=== PATIENT | male | born 1935 | race Caucasian/White ===

== ENCOUNTER 2017-10-06 14:55 | Inpatient (IN) | payer MEDICARE, OTHER ==
[2017-10-06] MEDS ORDERED: PROVENTIL 2.5 MG/3 ML NEB IH ONE ×2 (15:06→15:11)
[2017-10-06] MEDS ORDERED: ROCEPHIN 1 Gm-D5w 50 ml Bag** 1 G/50 ML IVPB IV STA (15:11)
[2017-10-06] MEDS ORDERED: Zithromax 500 MG/ 250 ML NaCl Premix 500 MG/250 ML IVPB IV STA (15:11)
[2017-10-06] MEDS ORDERED: solu-MEDROL 125 MG IV ONE (15:11)
[2017-10-06] MEDS ORDERED: Sodium Chloride 0.9% 1000 ML 1,000 ML IV SCH (15:15)
[2017-10-06] MEDS ORDERED: Zithromax 500 MG/ 250 ML NaCl Premix 500 MG/250 ML IVPB IV ONE (15:17)
[2017-10-06] MEDS ORDERED: solu-MEDROL 125 MG ONE (15:17)
[2017-10-06] MEDS ORDERED: Sodium Chloride 0.9% 1000 ML 1,000 ML ONE (15:17)
[2017-10-06 15:20] LABS: A-aADO2 184; ABG HEMOGLOBIN 14.7; ABG POTASSIUM 4.4 (3.5-5.1); ARTERIAL BLD GAS O2 SATURATION 96.1 % (95-100); ARTERIAL BLOOD GAS BASE EXCESS -4.8 (-2.0-2.0); ARTERIAL BLOOD GAS FIO2 40 %; ARTERIAL BLOOD GAS PCO2 27 mmHg (35-45); ARTERIAL BLOOD GAS PO2 67 mmHg (75-100); ARTERIAL BLOOD GAS pH 7.43 (7.35-7.45); CARBOXYHEMOGLOBIN 2.2 % THgb (0.0-6.9); HCO3- 17.9 (22-28); Lactic Acid 2.7 (0.4-2.0); paO2 pAO1 0.27
[2017-10-06 15:22] LABS: ABG SITE LEFT RADIAL; ALLEN TEST OK? YES
[2017-10-06] MEDS ORDERED: LEVOFLOXACIN 750MG/150ML D5W 750 MG/150 ML BAG IV STA (15:34)
[2017-10-06 15:36] LABS: Hematocrit 46.9 % (42-50); Hemoglobin 14.7 gm/dl (12.5-18.0); Mean Cell Volume 95.1 fl (78-100); Mean Corpuscular Hemoglobin 29.8 pg (26-32); Mean Corpuscular Hgb Concent. 31.3 g/dl (32-36); Mean Platelet Volume 9.9 fl (6-9.5); Platelet Count 342 K/mm3 (150-450); Red Blood Count 4.93 M/mm3 (4.1-5.6); Red Cell Distribution Width 15.3 % (11.5-14.0)
[2017-10-06 15:39] LABS: INR 1.1 (0.8-3.0)
[2017-10-06 15:42] LABS: PTT 29.7 SECONDS (24.1-36.1)
[2017-10-06] MEDS ORDERED: LEVOFLOXACIN 750MG/150ML D5W 750 MG/150 ML BAG IV ONE (15:46)
[2017-10-06 15:48] LABS: ANION GAP 17.3 MEQ/L (5-15); BILIRUBIN,TOTAL 0.4 mg/dL (0.2-1.0); Carbon Dioxide 21.3 mEq/L (21-32); Creatinine 1 2.43 mg/dl (0.55-1.30); MAGNESIUM 2.2 mg/dL (1.8-2.4); Potassium 4.4 mEq/L (3.5-5.1); Total Protein 6.9 gm/dL (6.4-8.2)
--- NOTE | 2017-10-06 15:52 | XRAY ---
Indication: Cough and dyspnea. Comparison: September 28, 2016. Portable chest again demonstrates COPD with scattered bilateral fibrosis/scarring. New left midlung consolidating air space disease without large effusion. Heart is not enlarged. Bony thorax intact. Impression: New inferior left upper lobe consolidating airspace disease. Stable COPD and fibrosis/scarring.
[2017-10-06 16:18] LABS: Eosinophil 2 % (0.00-3.0); Lymphocytes 8 % (24-44); Monocyte 9 % (0.0-12.0); Myelocyte 1 %; Neutrophils 80 % (36.-66.); Total Cells Counted 100
[2017-10-06 16:19] LABS: ABSOLUTE NEUTROPHILS 9.69 (1.4-6.9); Burr Cells 1+; Platelet Estimate NORMAL (NORMAL)
--- NOTE | 2017-10-06 16:26 | ERPHSYRPT ---
- History of Present Illness Time Seen by Provider: 10/06/17 15:04 Source: patient, family (daughter) Patient Subjective Stated Complaint: to er for low blood pressure. pt family states pt has been recently sick with shingles, and has been loosing weight recently Triage Nursing Assessment: to er c/o low blood pressure pt states worse in last day pt arrives sob Physician History: CC: cough Hx: 82 y/o patient of BARRY and DR Marroquin. He has hx of COPD and prior stroke with anxiety. He was treated recently with cipro and prednisone for bronchitis. The meds are done. He is on 5 puffers. He has fever, increased cough with sputum , shortness of breath. BP lower today than normal. No pain. Pt is not on home oxygen. ALL: PCN- angioedema Allergies/Adverse Reactions: penicillin G Allergy (Mild, Verified 09/28/16 08:53) HIVES/PASSED OUT Home Medications: Tamsulosin HCl 0.4 mg [Flomax 0.4 MG] 0.4 mg PO EVENING MEAL 07/25/14 [ History] Atorvastatin Calcium 40 mg PO DAILY 09/28/16 [History] Metoprolol Tartrate 50 mg [Lopressor 50 MG] 25 mg PO BID 09/28/16 [History ] Albuterol Sulfate [Proair Respiclick] 90 mcg IH QID PRN 10/06/17 [History] Amlodipine Besylate 5 mg [Norvasc 5 mg] 5 mg PO DAILY 10/06/17 [History] Budesonide/Formoterol Fumarate [Symbicort 160-4.5 Mcg Inhaler] 10.2 gm IH DAILY 10/06/17 [History] Buspirone HCl [Buspar] 10 mg PO BID 10/06/17 [History] Clopidogrel Bisulfate 75 mg [PLAVIX 75 MG Tablet] 75 mg PO DAILY 10/06/17 [History] Hx Tetanus, Diphtheria Vaccination/Date Given: No Hx Influenza Vaccination/Date Given: No Hx Pneumococcal Vaccination/Date Given: Yes - Review of Systems Constitutional: Fever, Chills, Malaise Eyes: No Symptoms Ears, Nose, & Throat: No Symptoms Respiratory: Cough, Dyspnea Cardiac: No Chest Pain Abdominal/Gastrointestinal: No Abdominal Pain, No Nausea, No Vomiting Skin: No Rash Neurological: No Headache All Other Systems: Reviewed and Negative - Past Medical History Pertinent Past Medical History: Yes Neurological History: No Pertinent History ENT History: No Pertinent History Cardiac History: High Cholesterol, Hypertension Respiratory History: COPD Endocrine Medical History: No Pertinent History Musculoskeletal History: No Pertinent History GI Medical History: Ulcer History: No Pertinent History Psycho-Social History: No Pertinent History Male Reproductive Disorders: Prostate Problems Other Medical History: Melanoma - Past Surgical History Past Surgical History: Yes Neuro Surgical History: No Pertinent History Cardiac: No Pertinent History Respiratory: No Pertinent History Gastrointestinal: No Pertinent History Genitourinary: No Pertinent History Musculoskeletal: No Pertinent History Male Surgical History: No Pertinent History Other Surgical History: LUMPH NODE REMOVED. Melanoma Surgery - Social History Smoking Status: Former smoker How long have you smoked: YRS Exposure to second hand smoke: No Drug Use: none Patient Lives Alone: No - Nursing Vital Signs Nursing Vital Signs: Initial Vital Signs Temperature 98.0 F 10/06/17 14:59 Pulse Rate 92 H 10/06/17 14:59 Respiratory Rate 26 H 10/06/17 14:59 Blood Pressure 163/86 10/06/17 14:59 O2 Sat by Pulse Oximetry 75 L 10/06/17 14:59 Pain Scale Pain Intensity 0 - Physical Exam General Appearance: alert, cachetic, other (anxious) Eye Exam: PERRL/EOMI Ears, Nose, Throat Exam: moist mucous membranes Neck Exam: normal inspection, non-tender, supple Respiratory Exam: respiratory distress (mild), diminished breath sounds Cardiovascular Exam: regular rate/rhythm Gastrointestinal/Abdomen Exam: soft, No tenderness, No distention Neurologic Exam: alert, oriented x 3, cooperative, other (somewhat anxious but calms readily), No motor deficits Skin Exam: warm, dry, No rash SpO2 Interpretation: hypoxic, ABG ordered, O2 applied SpO2: 71 Oxygen Delivery: Room Air - Course Nursing assessment & vital signs reviewed: Yes EKG Interpreted by Me: RATE (98), Sinus Rhythm, NORMAL AXIS, NORMAL INTERVALS ( QTc 404), NORMAL ST-T - Radiology Exams cxr X-ray Interpretation: Teleradiologist Report (New inferior left upper lobe conolidating airspace disease. STable COPD/fibrosis/scarring.) Ordered Tests: Active Orders 24 hr Category Date Time Status Manager Decision Support STAT Care 10/06/17 15:12 Active Clean Catch Urine Specimen STAT Care 10/06/17 15:11 Active EKG-ER Only STAT Care 10/06/17 15:11 Active IV Insertion STAT Care 10/06/17 15:11 Active Oxygen-ED Only NASAL CANNULA 4 lpm Care 10/06/17 15:11 Active Pulse Oximetry (ED) STAT Care 10/06/17 15:11 Active Rectal Temperature STAT Care 10/06/17 15:11 Active CHEST 1 VIEW (PORTABLE) Stat Exams 10/06/17 15:11 Completed ARTERIAL BLOOD GASES Stat Lab 10/06/17 15:10 Completed BLOOD CULTURE Stat Lab 10/06/17 15:11 Ordered CBC W DIFF Stat Lab 10/06/17 15:19 Completed CMP Stat Lab 10/06/17 15:19 Completed CULTURE,SPUTUM Stat Lab 10/06/17 15:11 Uncollected Lactic Acid Stat Lab 10/06/17 15:10 Completed MAGNESIUM Stat Lab 10/06/17 15:19 Completed Manual Differential NC Stat Lab 10/06/17 15:19 Completed PROTIME WITH INR Stat Lab 10/06/17 15:19 Completed PTT Stat Lab 10/06/17 15:19 Completed UA W/RFX UR CULTURE Stat Lab 10/06/17 15:11 Ordered Respiratory Nebulizer STAT RT 10/06/17 15:12 Completed Medication Summary Generic Name Dose Route Start Last Admin Trade Name Freq PRN Reason Stop Dose Admin Sodium Chloride 1,000 mls @ 50 mls/hr 10/06/17 15:15 10/06/17 15:31 Sodium Chloride 0.9% 1000 Ml IV 11/05/17 15:14 50 mls/hr .Q20H MONIKA Administration Levofloxacin/Dextrose 750 mg in 150 mls @ 100 mls/hr 10/06/17 15:34 10/06/17 15:49 Levofloxacin 750mg/150ml D5w IV 10/06/17 17:03 100 mls/hr STAT STA Administration Discontinued Medications Generic Name Dose Route Start Last Admin Trade Name Freq PRN Reason Stop Dose Admin Albuterol Sulfate Confirm 10/06/17 15:06 Proventil 2.5 Mg/3 Ml Neb Administered 10/06/17 15:07 Dose 2.5 mg IH .STK-MED ONE Albuterol Sulfate 2.5 mg 10/06/17 15:11 10/06/17 15:08 Proventil 2.5 Mg/3 Ml Neb IH 10/06/17 15:12 2.5 mg STAT ONE Administration Ceftriaxone Sodium/Dextrose 1 g in 50 mls @ 100 mls/hr 10/06/17 15:11 Rocephin 1 Gm-D5w 50 Ml Bag IV 10/06/17 15:40 STAT STA Azithromycin 500 mg in 250 mls @ 250 mls/hr 10/06/17 15:11 Zithromax 500 Mg/ 250 Ml Nacl Premix IV 10/06/17 16:10 STAT STA Azithromycin Confirm 10/06/17 15:17 Zithromax 500 Mg/ 250 Ml Nacl Premix Administered 10/06/17 15:18 Dose 500 mg in 250 mls @ ud IV .STK-MED ONE Levofloxacin/Dextrose Confirm 10/06/17 15:46 Levofloxacin 750mg/150ml D5w Administered 10/06/17 15:47 Dose 750 mg in 150 mls @ ud IV .STK-MED ONE Methylprednisolone Sodium Succinate 125 mg 10/06/17 15:11 10/06/17 15:32 Solu-Medrol 125 Mg IV 10/06/17 15:12 125 mg STAT ONE Administration Methylprednisolone Sodium Succinate Confirm 10/06/17 15:17 Solu-Medrol 125 Mg Administered 10/06/17 15:18 Dose 125 mg .ROUTE .STK-MED ONE Lab/Rad Data: Laboratory Result Diagrams 10/06/17 15:19 10/06/17 15:19 Laboratory Results 10/06/17 10/06/17 10/06/17 Range/Units 15:19 15:19 15:19 WBC 12.0 H (4.0-10.5) K/mm3 RBC 4.93 (4.1-5.6) M/mm3 Hgb 14.7 (12.5-18.0) gm/dl Hct 46.9 (42-50) % MCV 95.1 (78-100) fl MCH 29.8 (26-32) pg MCHC 31.3 L (32-36) g/dl RDW 15.3 H (11.5-14.0) % Plt Count 342 (150-450) K/mm3 MPV 9.9 H (6-9.5) fl Absolute Neutrophils 9.69 (1.4-6.9) Segmented Neutrophils 80 H (36.-66.) % Lymphocytes (Manual) 8 L (24-44) % Monocytes (Manual) 9 (0.0-12.0) % Eosinophils (Manual) 2 (0.00-3.0) % Myelocytes 1 % Differential Comment ABNORMAL Platelet Estimate NORMAL (NORMAL) Rayle Cells 1+ INR 1.10 (0.8-3.0) APTT 29.7 (24.1-36.1) SECONDS Puncture Site pCO2 (35-45) mmHg pO2 (75-100) mmHg Base Excess (-2.0-2.0) O2 Saturation (94-100) g/dF ABG pH (7.35-7.45) ABG HCO3 (22-28) ABG O2 Sat (Measured) (95-100) % Nguyễn Test A-a Gradient a/A Ratio Hemoglobin Carboxyhemoglobin (0.0-6.9) % THgb Methemoglobin (1.4-1.5) % Potassium 4.4 (3.5-5.1) Temperature C POC O2 Flow Rate % Sodium 141 (136-145) mEq/L Chloride 107 (98-107) mEq/L Carbon Dioxide 21.3 (21-32) mEq/L Anion Gap 17.3 H (5-15) MEQ/L BUN 46 H (9-20) mg/dL Creatinine 2.43 H (0.55-1.30) mg/dl Estimated GFR 27 ML/MIN Glucose 109 (70-110) MG/DL Lactic Acid (0.4-2.0) Calcium 9.0 (8.5-10.1) mg/dL Magnesium 2.2 (1.8-2.4) mg/dL Total Bilirubin 0.40 (0.2-1.0) mg/dL AST 30 (15-37) U/L ALT 32 (12-78) U/L Alkaline Phosphatase 86 (46-116) U/L Serum Total Protein 6.9 (6.4-8.2) gm/dL Albumin 2.0 L (3.4-5.0) g/dL Influenza Type A Ag (NEGATIVE) Influenza Type B Ag (NEGATIVE) RSV (PCR) (Negative) 10/06/17 10/06/17 Range/Units 15:19 15:10 WBC (4.0-10.5) K/mm3 RBC (4.1-5.6) M/mm3 Hgb (12.5-18.0) gm/dl Hct (42-50) % MCV (78-100) fl MCH (26-32) pg MCHC (32-36) g/dl RDW (11.5-14.0) % Plt Count (150-450) K/mm3 MPV (6-9.5) fl Absolute Neutrophils (1.4-6.9) Segmented Neutrophils (36.-66.) % Lymphocytes (Manual) (24-44) % Monocytes (Manual) (0.0-12.0) % Eosinophils (Manual) (0.00-3.0) % Myelocytes % Differential Comment Platelet Estimate (NORMAL) Rayle Cells INR (0.8-3.0) APTT (24.1-36.1) SECONDS Puncture Site LEFT RADIAL pCO2 27 L (35-45) mmHg pO2 67 L (75-100) mmHg Base Excess -4.8 L (-2.0-2.0) O2 Saturation 93.0 L (94-100) g/dF ABG pH 7.43 (7.35-7.45) ABG HCO3 17.9 L (22-28) ABG O2 Sat (Measured) 96.1 (95-100) % Nguyễn Test YES A-a Gradient 184 a/A Ratio 0.27 Hemoglobin 14.7 Carboxyhemoglobin 2.2 (0.0-6.9) % THgb Methemoglobin 1.0 L (1.4-1.5) % Potassium 4.4 (3.5-5.1) Temperature 37.0 C POC O2 Flow Rate 40 % Sodium (136-145) mEq/L Chloride (98-107) mEq/L Carbon Dioxide (21-32) mEq/L Anion Gap (5-15) MEQ/L BUN (9-20) mg/dL Creatinine (0.55-1.30) mg/dl Estimated GFR ML/MIN Glucose (70-110) MG/DL Lactic Acid 2.7 H (0.4-2.0) Calcium (8.5-10.1) mg/dL Magnesium (1.8-2.4) mg/dL Total Bilirubin (0.2-1.0) mg/dL AST (15-37) U/L ALT (12-78) U/L Alkaline Phosphatase (46-116) U/L Serum Total Protein (6.4-8.2) gm/dL Albumin (3.4-5.0) g/dL Influenza Type A Ag NEGATIVE (NEGATIVE) Influenza Type B Ag NEGATIVE (NEGATIVE) RSV (PCR) NEGATIVE (Negative) - Progress Progress Note: 10/06/17 16:27 Pt improved with oxygen, nebs. Steroids given. Cultures sent. Temp [facility]. [facility] and pt has MCR A/B. 10/06/17 16:[address] Marroquin who agreed for IP admission. Plan explained to pt and daughter. Discussed with .: Cara Will see patient in: hospital (full admit) Counseled pt/family regarding: lab results, diagnosis, need for follow-up, rad results - Departure Time of Disposition: 16:53 Departure Disposition: In-patient Admission Clinical Impression: Renal insufficiency, Left upper lobe pneumonia, COPD exacerbation, Hypoxemia Condition: Fair Critical Care Time: Yes Critical Care Time(excluding separately billable procedures): 30-74 minutes
[2017-10-06 16:28] LABS: INFLUENZA A NEGATIVE (NEGATIVE); INFLUENZA B NEGATIVE (NEGATIVE); RESPIRATORY SYNCTIAL VIRUS NEGATIVE (Negative)
[2017-10-06 17:34] LABS: Lactic Acid 2.5 (0.4-2.0)
[2017-10-06] MEDS ORDERED: TYLENOL 325 MG PO PRN (18:14)
[2017-10-06] MEDS ORDERED: BENADRYL 25 MG CAPSULE PO PRN (20:24)
[2017-10-06] MEDS ORDERED: Lopressor 25MG Tab PO ONE (20:26)
[2017-10-06] MEDS ORDERED: BUSPAR 5 MG PO ONE (22:00)
[2017-10-06] MEDS ORDERED: Flomax 0.4 MG PO ONE (22:00)
[2017-10-06] MEDS: Pepcid 20 MG VIAL IV SCH (22:48)
[2017-10-07 01:39] LABS: Appearance CLEAR (CLEAR); Bacteria RARE /HPF (NEGATIVE); Bilirubin NEGATIVE (NEGATIVE); Blood TRACE NON-HEM Ery/ul (0-5); Epithelial Cells RARE /HPF (FEW); Glucose NEGATIVE (NEGATIVE); Ketones NEGATIVE (NEGATIVE); Leukocyte Esterase NEGATIVE (NEGATIVE); Nitrite NEGATIVE (NEGATIVE); Protein,Urine Dip TRACE (Negative); Urobilinogen NORMAL mg/dL (0-1); WBC 0-2 /HPF (0-5)
[2017-10-07] MEDS: Pepcid 20 MG VIAL IV SCH ×2 (08:22→22:58)
[2017-10-07] MEDS ORDERED: ALBUTEROL SULFATE 90 MCG IH PRN (09:37)
[2017-10-07] MEDS ORDERED: NON-FORMULARY ITEM (Multivitamin [Multi-Vitamin Daily] 1 EACH) PO SCH (10:00)
[2017-10-07] MEDS ORDERED: NON-FORMULARY ITEM (Buspirone Hcl [Buspar] 10 MG) PO SCH (10:00)
--- NOTE | 2017-10-07 10:00 | HP ---
CHIEF COMPLAINT: Shortness of breath. HISTORY OF PRESENT ILLNESS: The patient is an 82 year-old white male patient presenting to the emergency room after having problems with shortness of breath. He reports that he could not walk from his bathroom back to bed without having to sit down and rest. He noted that his blood pressure was somewhat low and less than 100/50 and that his feet were turning purple. The patient is normally seen at the [facility]. He was seen in the emergency room and diagnosed with pneumonia and admitted to the hospital on the pneumonia pathway on . PAST MEDICAL/SURGICAL HISTORY: Significant for recent shingles infection which he currently still has evidence of on the left side of the chest. He was treated initially with acyclovir but has more recently been placed on creams and Benadryl for the itching. The patient has also benign prostatic hypertrophy, hypertension and chronic obstructive pulmonary disease. Also past surgical history significant for melanoma surgery which he had four years ago. HOME MEDICATIONS: Currently includes Tamsulosin 0.4 mg a day, atorvastatin 40 mg a day, metoprolol 50 mg tablets 25 mg b.i.d., Albuterol, amlodipine 5 mg a day, Symbicort, Buspar 10 mg b.i.d. and Plavix 75 mg daily. ALLERGIES: PENICILLIN G. PHYSICAL EXAMINATION: Revealed a frail, elderly appearing 82 year-old white male currently in no obvious distress. He is wearing oxygen per nasal cannula at 3 liters presently. VITAL SIGNS: The patient's temperature was noted to be 99.9F, pulse 104, respiratory rate 28 at maximum. His blood pressure now 124/81. O2 saturation 94% on 3 liters. HEENT: Normocephalic, atraumatic. Pupils equal round reactive to light. Extraocular movements intact. Oropharynx is slightly dry. NECK: Supple without lymphadenopathy, thyromegaly or JVD. CHEST: Fairly clear to auscultation. HEART: Regular rate and rhythm without murmurs, rubs or gallops. ABDOMEN: Soft, nontender, nondistended without hepatosplenomegaly or masses. EXTREMITIES: Without clubbing, cyanosis or edema. NEUROLOGIC: The patient is alert and oriented x3. LAB DATA AND TESTS: On initial evaluation a new consolidating left upper lobe infiltrate on the chest x-ray. White blood cell count 12,000, hemoglobin 14.7, PLT 242,000. He had ABG showing pH of 7.43, pCO2 of 27, pO2 of 67. International normalized ratio 1.10. Metabolic panel showed a glucose of 109, BUN 46, creatinine 2.43. Electrolytes were normal. Liver enzymes were normal. Lactic acid was 2.5 initially. ASSESSMENT: A patient with pneumonia. He has been admitted on IV antibiotics and IV fluids and oxygen supplementation. The patient is normally taken care of at the [facility] but they reported they had no bed for him. He therefore needed to be admitted here for continued treatment. We will continue his home medications as listed above otherwise.
[2017-10-07] MEDS: BUSPAR 5 MG PO SCH ×2 (10:12→22:57)
[2017-10-07] MEDS: PLAVIX 75 MG Tablet PO SCH (10:12)
[2017-10-07] MEDS: THERAGRAN MULTIVITAMIN PO SCH (10:12)
[2017-10-07] MEDS: Lopressor 50 MG PO SCH ×2 (10:12→22:57)
[2017-10-07] MEDS: Sodium Chloride 0.9% 1000 ML 1,000 ML IV SCH (10:14)
[2017-10-07] MEDS: Flomax 0.4 MG PO SCH (17:40)
[2017-10-07] MEDS: ADVAIR 500-50 DISKUS IH SCH (19:41)
[2017-10-07] MEDS: LIPITOR 40MG PO SCH (22:57)
[2017-10-08 05:56] LABS: Granulocyte Absolute (ANC) 10.65 (1.4-6.9); Hematocrit 37.3 % (42-50); Hemoglobin 11.6 gm/dl (12.5-18.0); Mean Cell Volume 96.4 fl (78-100); Mean Corpuscular Hgb Concent. 31.1 g/dl (32-36); Mean Platelet Volume 9.5 fl (6-9.5); Platelet Count 293 K/mm3 (150-450); Red Blood Count 3.87 M/mm3 (4.1-5.6); Red Cell Distribution Width 14.9 % (11.5-14.0)
[2017-10-08 06:03] LABS: Mean Corpuscular Hemoglobin 29.9 pg (26-32)
[2017-10-08 06:21] LABS: ANION GAP 10.2 MEQ/L (5-15); Calcium 8.4 mg/dL (8.5-10.1); Creatinine 1 1.72 mg/dl (0.55-1.30); Potassium 4.4 mEq/L (3.5-5.1)
[2017-10-08] MEDS: Sodium Chloride 0.9% 1000 ML 1,000 ML IV SCH (06:23)
[2017-10-08 07:19] LABS: BAND 8 % (0.0-2.0); Eosinophil 1 % (0.00-3.0); Lymphocytes 4 % (24-44); Monocyte 2 % (0.0-12.0); Neutrophils 85 % (36.-66.); Total Cells Counted 100
[2017-10-08 07:20] LABS: Platelet Estimate NORMAL (NORMAL)
[2017-10-08 07:30] LABS: Burr Cells 1+
[2017-10-08] MEDS: Spiriva 18 Mcg/Cap Inhaler IH SCH (07:40)
[2017-10-08] MEDS: ADVAIR 500-50 DISKUS IH SCH ×2 (07:42→19:27)
[2017-10-08] MEDS: Lopressor 50 MG PO SCH ×2 (10:00→21:18)
[2017-10-08] MEDS: BUSPAR 5 MG PO SCH ×2 (10:00→21:18)
[2017-10-08] MEDS: PLAVIX 75 MG Tablet PO SCH (10:01)
[2017-10-08] MEDS: THERAGRAN MULTIVITAMIN PO SCH (10:01)
[2017-10-08] MEDS: Pepcid 20 MG VIAL IV SCH ×2 (10:01→21:19)
[2017-10-08] MEDS ORDERED: BENADRYL 50 MG/ML IV PRN (13:35)
[2017-10-08] MEDS ORDERED: Haldol 5 MG IM PRN (13:35)
--- NOTE | 2017-10-08 14:16 | PCM.NOTE ---
Date and Time: 10/08/171411 Subjective Assessment: Pt has SOB with any activity. Earnest po. Would like to sit in the chair. - Review of Systems Constitutional: No Fever Respiratory: Cough, Short Of Breath Objective Exam General Appearance: no apparent distress, anxiety Neurologic Exam: alert, cooperative Skin Exam: normal color, warm, dry, No rash Respiratory Exam: diminished breath sounds (fair AE) Cardiovascular Exam: regular rate/rhythm, normal heart sounds, No murmur Gastrointestinal/Abdomen Exam: soft, No tenderness Extremity Exam: normal inspection, No pedal edema, No swelling OBJECTIVE DATA Vital Signs: Vital Signs - 24 hr Temp Pulse Resp BP Pulse Ox 10/08/17 12:00 20 10/08/17 11:45 97.6 F 80 20 138/86 94 L 10/08/17 08:00 20 10/08/17 07:53 97.2 F 80 20 140/96 94 L 10/08/17 07:40 78 20 95 10/08/17 04:00 97.5 F 74 20 143/96 95 10/08/17 00:00 98.1 F 61 17 131/84 94 L 10/07/17 20:00 96.1 F 68 22 135/85 95 10/07/17 19:41 73 20 95 10/07/17 16:00 96.2 F 72 20 121/79 95 Oxygen-Last 24 hours O2 Percentage 3 Liters = 32% O2 Percentage 3 Liters = 32% O2 Percentage 3 Liters = 32% O2 Percentage 3 Liters = 32% O2 Percentage 3 Liters = 32% O2 Percentage 4 Liters = 36% Pain Assessment - Last Documented Pain Scale Used 0-10 Pain Scale Intake and Output: Intake & Output 10/06/17 10/07/17 10/08/17 10/09/17 11:59 11:59 11:59 11:59 Intake Total 1581 2427 120 Output Total 1325 400 Balance 1581 1102 -280 Weight 60.464 kg Lab Results: Lab Results-Last 24 Hours 10/08/17 10/08/17 Range/Units 04:00 05:15 WBC 13.0 H (4.0-10.5) K/mm3 RBC 3.87 L (4.1-5.6) M/mm3 Hgb 11.6 L (12.5-18.0) gm/dl Hct 37.3 L (42-50) % MCV 96.4 (78-100) fl MCH 29.9 (26-32) pg MCHC 31.1 L (32-36) g/dl RDW 14.9 H (11.5-14.0) % Plt Count 293 (150-450) K/mm3 MPV 9.5 (6-9.5) fl Segmented Neutrophils 85 H (36.-66.) % Band Neutrophils 8 H (0.0-2.0) % Lymphocytes (Manual) 4 L (24-44) % Monocytes (Manual) 2 (0.0-12.0) % Eosinophils (Manual) 1 (0.00-3.0) % Differential Comment ABNORMAL Platelet Estimate NORMAL (NORMAL) Romeo Cells 1+ Sodium 142 (136-145) mEq/L Potassium 4.4 (3.5-5.1) mEq/L Chloride 114 H (98-107) mEq/L Carbon Dioxide 22.0 (21-32) mEq/L Anion Gap 10.2 (5-15) MEQ/L BUN 43 H (9-20) mg/dL Creatinine 1.72 H (0.55-1.30) mg/dl Estimated GFR 41 ML/MIN Glucose 85 (70-110) MG/DL Calcium 8.4 L (8.5-10.1) mg/dL Multi-Disciplinary Progress Notes: Multi-Disciplinary Progress Notes 10/07/17 15:12 Case Management Note by Angeli Murray PAPERS WEB APPROVED, NO LEVEL II REQUIRED, FAXED TO [facility], AND ATTACHED TO FRONT OF CHART. Initialized on 10/07/17 15:12 - END OF NOTE 10/07/17 15:02 Case Management Note by Claudia Braga REFERRAL CALLED TO DEENA CORTES REPORTS THAT SHE WILL BE OUT TO [facility] THIS AFTERNOON. Initialized on 10/07/17 15:02 - END OF NOTE 10/07/17 14:45 (created 10/07/17 14:57) Case Management Note by Claudia Braga REVIEWED DISCHARGE PLAN WITH PT'S LAY CAREGIVER AND DAUGHTER JASSI VIA TELEPHONE. REPORTS THAT SHE AND HER DAD HAVE BEEN TALKING AND THEY FEEL LIKE PT IS GOING TO NEED A REHAB STAY ON DISCHARGE PRIOR TO RETURN HOME. REPORTS THAT HE HAS BEEN TO DOCTOR, HAS BEEN TREATED FOR BRONCHITIS FOR OVER A WEAK, HAS GOTTEN ALOT WEAKER. REPORTS THAT AT THIS TIME THEY DO NOT FEEL HE CAN PROVIDE CARE INDEPENDENTLY IN THE HOME. REQUESTS REFERRAL TO [facility] AT THIS TIME. DID DISCUSS HHC SERVICES FOR WHEN PT IS READY TO TRANSITION BACK TO HOME. REPORTS THAT THEY HAVE USED HHC SERVICES IN THE PAST - LAST YEAR AFTER HIS STROKE. REPORTS THAT NORMALLY PT IS INDEPENDENT AND ABLE TO PROVIDE ALL NEEDS. WILL CONTINUE TO FOLLOW AND ASSESS FOR ALL DC NEEDS. Initialized on 10/07/17 14:57 - END OF NOTE Assessment/Plan (1) COPD exacerbation Current Visit: Yes Status: Acute Assessment & Plan: Pt is on IV Levaquin. I discussed that he is on antibiotics for pneumonia and COPD, but the pt does not seem to have a good understanding of his disease process. Code(s): J44.1 - CHRONIC OBSTRUCTIVE PULMONARY DISEASE W (ACUTE) EXACERBATION (2) Hypoxemia Current Visit: Yes Status: Acute Assessment & Plan: acute on chronic Code(s): R09.02 - HYPOXEMIA (3) Left upper lobe pneumonia Current Visit: Yes Status: Acute Qualifiers: Pneumonia type: due to unspecified organism Qualified Code(s): J18.1 - Lobar pneumonia, unspecified organism Assessment & Plan: Pt is in isolation. Code(s): J18.1 - LOBAR PNEUMONIA, UNSPECIFIED ORGANISM
[2017-10-08] MEDS ORDERED: LEVOFLOXACIN 750MG/150ML D5W 750 MG/150 ML BAG IV SCH (16:00)
[2017-10-08] MEDS: Flomax 0.4 MG PO SCH (17:44)
[2017-10-08] MEDS: PROVENTIL 2.5 MG/3 ML NEB IH PRN (19:26)
[2017-10-08] MEDS: LIPITOR 40MG PO SCH (21:19)
[2017-10-09] MEDS: Sodium Chloride 0.9% 1000 ML 1,000 ML IV SCH ×2 (03:38→22:50)
[2017-10-09] MEDS: Lopressor 50 MG PO SCH ×2 (09:25→21:51)
[2017-10-09] MEDS: THERAGRAN MULTIVITAMIN PO SCH (09:25)
[2017-10-09] MEDS: BUSPAR 5 MG PO SCH ×2 (09:25→21:50)
[2017-10-09] MEDS: PLAVIX 75 MG Tablet PO SCH (09:25)
[2017-10-09] MEDS: Pepcid 20 MG VIAL IV SCH ×2 (09:25→21:51)
[2017-10-09] MEDS: PROVENTIL 2.5 MG/3 ML NEB IH PRN (09:50)
[2017-10-09] MEDS: Spiriva 18 Mcg/Cap Inhaler IH SCH (09:50)
[2017-10-09] MEDS: ADVAIR 500-50 DISKUS IH SCH ×2 (09:50→20:01)
[2017-10-09] MEDS ORDERED: Pepto-Bismol PO PRN ×2 (14:29→14:45)
--- NOTE | 2017-10-09 14:29 | PCM.NOTE ---
Date and Time: 10/09/171425 Subjective Assessment: Pt feeling better, still very SOB with any activity but does recover with rest. Shingles on his back are scabbed over. - Review of Systems Constitutional: No Fever Respiratory: Cough Objective Exam General Appearance: no apparent distress, alert Neurologic Exam: oriented x 3, cooperative Skin Exam: dry, rash (L lateral back with dried scaly lesions on slightly erythematous base) Respiratory Exam: lungs clear, diminished breath sounds, No crackles/rales, No rhonchi, No wheezing Cardiovascular Exam: regular rate/rhythm, normal heart sounds, No murmur Extremity Exam: No pedal edema, No swelling OBJECTIVE DATA Vital Signs: Vital Signs - 24 hr Temp Pulse Resp BP Pulse Ox 10/09/17 12:37 97.8 F 90 20 136/80 93 L 10/09/17 12:00 20 10/09/17 10:23 94 H 20 91 L 10/09/17 08:00 20 10/09/17 07:18 97.6 F 88 20 137/89 96 10/09/17 04:20 98.5 F 86 26 H 124/82 91 L 10/08/17 23:44 98.8 F 87 22 131/86 90 L 10/08/17 19:42 98.6 F 103 H 21 130/80 85 L 10/08/17 19:27 80 20 89 L 10/08/17 16:00 97.4 F 78 20 132/88 93 L Oxygen-Last 24 hours O2 Percentage 3 Liters = 32% O2 Percentage 3 Liters = 32% O2 Percentage 3 Liters = 32% O2 Percentage 3 Liters = 32% O2 Percentage 3 Liters = 32% O2 Percentage 3 Liters = 32% Pain Assessment - Last Documented Pain Intensity 0 Pain Scale Used 0-10 Pain Scale Intake and Output: Intake & Output 10/07/17 10/08/17 10/09/17 10/10/17 11:59 11:59 11:59 11:59 Intake Total 1581 2427 1925 240 Output Total 1325 1650 Balance 1581 1102 275 240 Weight 60.464 kg Assessment/Plan (1) COPD exacerbation Current Visit: Yes Status: Acute Assessment & Plan: Improving, does get very SOB. To LTCF tomorrow. Code(s): J44.1 - CHRONIC OBSTRUCTIVE PULMONARY DISEASE W (ACUTE) EXACERBATION (2) Hypoxemia Current Visit: Yes Status: Acute Code(s): R09.02 - HYPOXEMIA (3) Left upper lobe pneumonia Current Visit: Yes Status: Acute Qualifiers: Pneumonia type: due to unspecified organism Qualified Code(s): J18.1 - Lobar pneumonia, unspecified organism Assessment & Plan: on levaquin IV Code(s): J18.1 - LOBAR PNEUMONIA, UNSPECIFIED ORGANISM (4) Shingles Current Visit: Yes Status: Acute Assessment & Plan: No open lesions, can be removed from isolation. Code(s): B02.9 - ZOSTER WITHOUT COMPLICATIONS
[2017-10-09] MEDS: Flomax 0.4 MG PO SCH (17:41)
[2017-10-09] MEDS: LIPITOR 40MG PO SCH (21:50)
[2017-10-10] MEDS: PROVENTIL 2.5 MG/3 ML NEB IH PRN ×2 (03:25→13:53)
[2017-10-10] MEDS: Spiriva 18 Mcg/Cap Inhaler IH SCH (07:21)
[2017-10-10] MEDS: ADVAIR 500-50 DISKUS IH SCH (07:21)
[2017-10-10] MEDS: BUSPAR 5 MG PO SCH (10:10)
[2017-10-10] MEDS: Pepcid 20 MG VIAL IV SCH (10:11)
[2017-10-10] MEDS: Lopressor 50 MG PO SCH (10:11)
[2017-10-10] MEDS: PLAVIX 75 MG Tablet PO SCH (10:11)
[2017-10-10] MEDS: THERAGRAN MULTIVITAMIN PO SCH (10:12)
[2017-10-10 11:52] VITALS: BP 139/76
--- NOTE | 2017-10-10 11:52 | PCM.DS ---
Discharge Summary Date of Admission: 10/06/17 18:00 Date of Discharge: 10/10/17 Admitting Physician: CAIN BROCK Primary Care Provider: BG ARIAS Allergies Allergies penicillin G Allergy (Mild, Verified 09/28/16 08:53) HIVES/PASSED OUT Hospital Summary - Hospital Course Hospital Course: Mr. Cnocepcion presented with 4 weeks of worsening cough and states had cxr about 10 days prior to presentation at [facility] but didn't hear back from them on it. He was having worsening sharp pains in the chest with breathing and presented to the Ed where he was hypoxic not on home oxygen and found to have pneumonia with sepsis. he suffers from COPD as well he was not initially treated with steroids. The [facility] was reportedly contacted prior to admission but no beds were available. He was found to have acute on chronic kidney injury as well. He had chronic anemia as well. He is also suffering from shingles on the left thoracic region that are scabbing and pain is improving now just some itching he reports. he was tolerating po well but still having shortness of breath with any exertion. he continues to have purse lipped breathing but O2 stable on the 4L nc O2. - Vitals & Intake/Output Vital Signs: Vital Signs Temperature 98.2 F 10/10/17 11:50 Pulse Rate 89 10/10/17 11:50 Respiratory Rate 20 10/10/17 11:50 Blood Pressure 139/76 10/10/17 11:50 O2 Sat by Pulse Oximetry 95 10/10/17 11:50 Oxygen-Last Documented O2 Percentage 3 Liters = 32% Intake & Output: Intake & Output 10/07/17 10/08/17 10/09/17 10/10/17 11:59 11:59 11:59 11:59 Intake Total 1581 2427 1925 1697 Output Total 1325 1650 1075 Balance 1581 1102 275 622 Weight 60.464 kg - Lab Result Diagrams: 10/08/17 04:00 10/08/17 05:15 - Procedures and Test Procedures and Tests throughout Hospitalization: Therapy Orders & Screens 10/06/17 23:01 Respiratory Nebulizer UD Comment: ALBUTEROL Q4PRN Diagnosis: shingles 10/07/17 07:00 Respiratory MDI BID Comment: Diagnosis: shingles Respiratory MDI UD Comment: SPIRIVA DAILY Diagnosis: shingles Discharge Exam General Appearance: no apparent distress, alert Neurologic Exam: alert, oriented x 3, cooperative, normal mood/affect, nml cerebellar function, sensation nml, No motor deficits Skin Exam: normal color, warm, dry Eye Exam: PERRL, EOMI, eyes nml inspection Ears, Nose, Throat Exam: normal ENT inspection, pharynx normal, moist mucous membranes Neck Exam: normal inspection, non-tender, supple, full range of motion Respiratory Exam: crackles/rales (left lung thoughout), rhonchi, other (purse lipped breathing) Cardiovascular Exam: regular rate/rhythm, normal heart sounds Gastrointestinal/Abdomen Exam: soft, No tenderness, No mass Extremity Exam: normal inspection, normal range of motion Back Exam: normal inspection, normal range of motion, No CVA tenderness, No vertebral tenderness Male Genitalia Exam: deferred Rectal Exam: deferred Final Diagnosis/Problem List - Final Discharge Diagnosis/Problem (1) Left upper lobe pneumonia Status: Acute (2) Acute hypoxemic respiratory failure Status: Acute (3) Sepsis Status: Acute (4) COPD exacerbation Status: Acute (5) Acute on chronic kidney failure Status: Acute (6) CVA (cerebral vascular accident) Status: Chronic (7) Hypertension Status: Chronic (8) Mixed hyperlipidemia Status: Chronic (9) Shingles Status: Acute - Discharge Discharge Date: 10/10/17 Disposition: ID TO [facility] Condition: Fair Prescriptions: New Diphenhydramine HCl 25 mg [Benadryl 25 mg Capsule] 25 mg PO Q4HPRN PRN capsule PRN Reason: Itching Tiotropium Morris Inhaler [Spiriva 18 Mcg/Cap Inhaler] 1 ea IH 0700 inh Acetaminophen 325 mg [Tylenol 325 mg] 650 mg PO Q4H PRN PRN tablet PRN Reason: Pain And/Or Fever Prednisone 10 mg [Deltasone 10 mg] 30 mg PO DAILY 5 Days #15 tablet Cefdinir [Omnicef] 300 mg PO BID 7 Days #14 capsule Famotidine 20 mg [Pepcid 20 MG] 20 mg PO BID #60 tablet Continue Tamsulosin HCl 0.4 mg [Flomax 0.4 MG] 0.4 mg PO EVENING MEAL Metoprolol Tartrate 50 mg [Lopressor 50 MG] 25 mg PO BID Atorvastatin Calcium 40 mg PO DAILY Clopidogrel Bisulfate 75 mg [PLAVIX 75 MG Tablet] 75 mg PO DAILY Buspirone HCl [Buspar] 10 mg PO BID Budesonide/Formoterol Fumarate [Symbicort 160-4.5 Mcg Inhaler] 10.2 gm IH DAILY Albuterol Sulfate [Proair Respiclick] 90 mcg IH QID PRN PRN Reason: sob Multivitamin [Multi-Vitamin Daily] 1 each PO BID Additional Instructions: cbc, CMP in 1 week for CKD Follow up with: BG ARIAS [Primary Care Provider] - 1 Week
[2017-10-10 14:07] VITALS: PULSE 87; O2SAT 96
== END 2017-10-10 13:55 | DRG 193 ==
LOC: ED 14:55 → MED SURG 18:00
PROVIDERS: ADMIT Family Medicine; ATTEND Family Medicine
DX: N28.9 Disorder of kidney and ureter, unspecified (principal); J18.1 Lobar pneumonia, unspecified organism; J96.01 Acute respiratory failure with hypoxia; A41.9 Sepsis, unspecified organism; I63.9 Cerebral infarction, unspecified; N17.9 Acute kidney failure, unspecified; J44.1 Chronic obstructive pulmonary disease with (acute) exacerbation; I12.9 Hypertensive chronic kidney disease with stage 1 through stage 4 chronic kidney disease, or unspecified chronic kidney disease; N18.9 Chronic kidney disease, unspecified; E78.2 Mixed hyperlipidemia; B02.9 Zoster without complications; N40.0 Benign prostatic hyperplasia without lower urinary tract symptoms; R09.02 Hypoxemia; I10 Essential (primary) hypertension; E78.00 Pure hypercholesterolemia, unspecified; F41.9 Anxiety disorder, unspecified; Z85.820 Personal history of malignant melanoma of skin; Z87.891 Personal history of nicotine dependence; Z79.899 Other long term (current) drug therapy
CPT/HCPCS: 36000; 36415; 36600; 71010; 80048; 80053; 81000; 82375; 82803; 83605; 83735; 85025; 85610; 85730; 87040; 87631; 93005; 93041; 94640; 94760; 96360; 96365; 96374; 99285; J0456; J1956; J2930; A9270-GY

== ENCOUNTER 2017-10-22 16:46 | Inpatient (IN) | payer MEDICARE ==
[2017-10-22] MEDS ORDERED: Pepcid 20 MG VIAL IV ONE ×2 (16:50→17:17)
[2017-10-22] MEDS ORDERED: PROVENTIL 2.5 MG/3 ML NEB IH ONE ×2 (16:50→17:00)
[2017-10-22] MEDS ORDERED: Sodium Chloride 0.9% 1000 ML 1,000 ML IV SCH (17:00)
[2017-10-22 17:06] LABS: Granulocyte Absolute (ANC) 9.68 (1.4-6.9); Hematocrit 43.4 % (42-50); Hemoglobin 13.5 gm/dl (12.5-18.0); Mean Cell Volume 94.8 fl (78-100); Mean Corpuscular Hemoglobin 29.5 pg (26-32); Mean Corpuscular Hgb Concent. 31.1 g/dl (32-36); Mean Platelet Volume 10.5 fl (6-9.5); Platelet Count 296 K/mm3 (150-450); Red Blood Count 4.58 M/mm3 (4.1-5.6); Red Cell Distribution Width 15.8 % (11.5-14.0); White Blood Count 11.6 K/mm3 (4.0-10.5)
[2017-10-22] MEDS ORDERED: Sodium Chloride 0.9% 1000 ML 1,000 ML IV STA (17:06)
[2017-10-22] MEDS ORDERED: FEVERALL 650 MG PR STA (17:06)
[2017-10-22] MEDS ORDERED: FEVERALL 325 MG ONE (17:07)
[2017-10-22] MEDS ORDERED: Sodium Chloride 0.9% 1000 ML 1,000 ML ONE ×2 (17:08→18:20)
[2017-10-22 17:09] LABS: A-aADO2 506; ABG HEMOGLOBIN 13.6; ABG POTASSIUM 4.9 (3.5-5.1); ABG SITE RIGHT BRACHIAL; ARTERIAL BLD GAS O2 SATURATION 100.2 % (95-100); ARTERIAL BLOOD GAS BASE EXCESS -0.3 (-2.0-2.0); ARTERIAL BLOOD GAS FIO2 100 %; ARTERIAL BLOOD GAS PCO2 32 mmHg (35-45); ARTERIAL BLOOD GAS PO2 167 mmHg (75-100); ARTERIAL BLOOD GAS VENT MODE BiPAP; ARTERIAL BLOOD GAS pH 7.46 (7.35-7.45); CARBOXYHEMOGLOBIN 2.8 % THgb (0.0-6.9); HCO3- 22.8 (22-28); HGB O2 SAT 96.2 g/dF (94-100); Methhemoglobin 1.3 % (1.4-1.5); paO2 pAO1 0.25
[2017-10-22 17:18] LABS: INR 1.13 (0.8-3.0)
--- NOTE | 2017-10-22 17:19 | ERPHSYRPT ---
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 Very anxious. Brought to ER because O2 sats low in 70's. Pt unable to give hx. He was recently admitted for COPD. He had zoster. He is on 3rd gen ceph and tamiflu as well. Timing/Duration: today Severity of Dyspnea-Max: severe Severity of Dyspnea-Current: severe Allergies/Adverse Reactions: penicillin G Allergy (Mild, Verified 10/22/17 17:01) HIVES/PASSED OUT Home Medications: Atorvastatin Calcium 40 mg PO DAILY 09/28/16 [History] Metoprolol Tartrate 50 mg [Lopressor 50 MG] 25 mg PO BID 09/28/16 [History ] Albuterol Sulfate [Proair Respiclick] 90 mcg IH QID PRN 10/06/17 [History] Clopidogrel Bisulfate 75 mg [PLAVIX 75 MG Tablet] 75 mg PO DAILY 10/06/17 [History] Hx Tetanus, Diphtheria Vaccination/Date Given: No Hx Influenza Vaccination/Date Given: No Hx Pneumococcal Vaccination/Date Given: Yes Immunizations Up to Date: Yes - Review of Systems Constitutional: Fever, Chills, Fatigue, Malaise, Weakness Eyes: No Symptoms Respiratory: Dyspnea, Wheezing Abdominal/Gastrointestinal: No Vomiting Skin: No Rash All Other Systems: Unable due to condition - Past Medical History Pertinent Past Medical History: Yes Neurological History: Stroke ENT History: No Pertinent History Cardiac History: High Cholesterol, Hypertension Respiratory History: COPD Endocrine Medical History: No Pertinent History Musculoskeletal History: No Pertinent History GI Medical History: No Pertinent History History: No Pertinent History Psycho-Social History: No Pertinent History Male Reproductive Disorders: Prostate Problems Other Medical History: Melanoma. shingles - Past Surgical History Past Surgical History: Yes Neuro Surgical History: No Pertinent History Cardiac: No Pertinent History Respiratory: No Pertinent History Gastrointestinal: No Pertinent History Genitourinary: No Pertinent History Musculoskeletal: No Pertinent History Male Surgical History: No Pertinent History Other Surgical History: LUMPH NODE REMOVED. Melanoma Surgery - Social History Smoking Status: Former smoker How long have you smoked: 30 Exposure to second hand smoke: Yes Drug Use: none Patient Lives Alone: No ([facility]) - Nursing Vital Signs Nursing Vital Signs: Initial Vital Signs Respiratory Rate 30 H 10/22/17 16:50 O2 Sat by Pulse Oximetry 98 10/22/17 16:50 Pain Scale Pain Intensity 0 - Physical Exam General Appearance: severe distress (respiratory), alert, thin Eye Exam: PERRL/EOMI Neck Exam: normal inspection, non-tender, supple Respiratory Exam: respiratory distress, diminished breath sounds, rhonchi, wheezing Cardiovascular/Chest Exam: tachycardia, irregular, No edema Abdominal/Gastrointestinal Exam: soft, No tenderness, No distention Extremity Exam: non-tender, normal range of motion Neurologic Exam: alert, No motor deficits Skin Exam: warm, dry, other (hot skin) SpO2 Interpretation: normal SpO2: 98 Oxygen Delivery: BiPap - Course EKG Interpreted by Me: RATE (142), A-fib, NORMAL AXIS, NORMAL INTERVALS (QTc 434 ), Non-specific ST Changes - Radiology Exams cxr X-ray Interpretation: Interpreted by me (COPD, worsened left upper lobe infiltrate, new right lower lobe infiltrate) Ordered Tests: Active Orders 24 hr Category Date Time Status 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 Laboratory 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 Care 10/22/17 16:51 Active Clean Catch Urine Specimen STAT Care 10/22/17 16:50 Active EKG-ER Only STAT Care 10/22/17 16:50 Active IV Insertion STAT Care 10/22/17 16:50 Active NPO (ED) STAT Care 10/22/17 16:50 Active Pulse Oximetry (ED) STAT Care 10/22/17 16:50 Active Rectal Temperature STAT Care 10/22/17 16:50 Active CHEST 1 VIEW (PORTABLE) Stat Exams 10/22/17 16:51 Taken ARTERIAL BLOOD GASES Stat Lab 10/22/17 16:50 Completed BLOOD CULTURE Stat Lab 10/22/17 17:40 Received CBC W DIFF Stat Lab 10/22/17 17:00 Completed CMP Stat Lab 10/22/17 17:00 Completed Lactic Acid Stat Lab 10/22/17 16:50 Completed Lactic Acid Stat Lab 10/22/17 19:09 Ordered MAGNESIUM Stat Lab 10/22/17 17:00 Completed Manual Differential NC Stat Lab 10/22/17 17:00 Completed PROTIME WITH INR Stat Lab 10/22/17 17:00 Completed PTT Stat Lab 10/22/17 17:00 Completed TROPONIN Q3H Lab 10/22/17 17:00 Completed TROPONIN Q3H Lab 10/22/17 20:00 Ordered TROPONIN Q3H Lab 10/22/17 23:00 Ordered TROPONIN Q3H Lab 10/23/17 02:00 Ordered TROPONIN Q3H Lab 10/23/17 05:00 Ordered UA W/RFX UR CULTURE Stat Lab 10/22/17 16:51 Ordered BiPap/CPAP Assessment STAT RT 10/22/17 16:50 Active Respiratory Nebulizer STAT RT 10/22/17 16:52 Completed Transfer Order Routine Transfer 10/22/17 Ordered Medication Summary Generic Name Dose Route Start Last Admin Trade Name Freq PRN Reason Stop Dose Admin Sodium Chloride 1,000 mls @ 100 mls/hr 10/22/17 17:00 10/22/17 18:21 Sodium Chloride 0.9% 1000 Ml IV 11/21/17 16:59 100 mls/hr .Q10H MONIKA Administration Discontinued Medications Generic Name Dose Route Start Last Admin Trade Name Freq PRN Reason Stop Dose Admin Acetaminophen 975 mg 10/22/17 17:06 10/22/17 17:31 Feverall 650 Mg CO 10/22/17 17:07 975 mg STAT STA Administration Acetaminophen Confirm 10/22/17 17:07 Feverall 325 Mg Administered 10/22/17 17:08 Dose 975 mg .ROUTE .STK-MED ONE Albuterol Sulfate 2.5 mg 10/22/17 16:50 10/22/17 17:00 Proventil 2.5 Mg/3 Ml Neb IH 10/22/17 16:51 2.5 mg STAT ONE Administration Albuterol Sulfate Confirm 10/22/17 17:00 Proventil 2.5 Mg/3 Ml Neb Administered 10/22/17 17:01 Dose 2.5 mg IH .STK-MED ONE Famotidine 20 mg 10/22/17 16:50 10/22/17 17:30 Pepcid 20 Mg Vial IV 10/22/17 16:51 20 mg STAT ONE Administration Famotidine Confirm 10/22/17 17:17 Pepcid 20 Mg Vial Administered 10/22/17 17:18 Dose 20 mg IV .STK-MED ONE Sodium Chloride 1,000 mls @ 999 mls/hr 10/22/17 17:06 10/22/17 17:30 Sodium Chloride 0.9% 1000 Ml IV 10/22/17 18:06 999 mls/hr .Q1H1M STA Administration Meropenem 1 g/ Sodium Chloride 100 mls @ 200 mls/hr 10/22/17 17:26 10/22/17 17:42 IV 10/22/17 17:55 200 mls/hr STAT ONE Administration Sodium Chloride Confirm 10/22/17 17:34 Sodium Chloride 0.9% 100 Ml Ivpb Administered 10/22/17 17:35 Dose 100 mls @ ud IV .STK-MED ONE Meropenem Confirm 10/22/17 17:34 Merrem 1 Gm Administered 10/22/17 17:35 Dose 1 g IV .STK-MED ONE Lab/Rad Data: Laboratory Result Diagrams 10/22/17 17:00 10/22/17 17:00 Laboratory Results 10/22/17 10/22/17 10/22/17 Range/Units 17:00 17:00 17:00 WBC (4.0-10.5) K/mm3 RBC (4.1-5.6) M/mm3 Hgb (12.5-18.0) gm/dl Hct (42-50) % MCV (78-100) fl MCH (26-32) pg MCHC (32-36) g/dl RDW (11.5-14.0) % Plt Count (150-450) K/mm3 MPV (6-9.5) fl INR 1.13 (0.8-3.0) APTT 29.5 (24.1-36.1) SECONDS Puncture Site pCO2 (35-45) mmHg pO2 (75-100) mmHg Base Excess (-2.0-2.0) O2 Saturation (94-100) g/dF ABG pH (7.35-7.45) ABG HCO3 (22-28) ABG O2 Sat (Measured) (95-100) % Nguyễn Test A-a Gradient a/A Ratio Hemoglobin Carboxyhemoglobin (0.0-6.9) % THgb Methemoglobin (1.4-1.5) % Potassium (3.5-5.1) Temperature C POC O2 Flow Rate % Vent Mode Inspiratory BiPAP Expiratory BiPAP Sodium (136-145) mEq/L Chloride (98-107) mEq/L Carbon Dioxide (21-32) mEq/L Anion Gap (5-15) MEQ/L BUN (9-20) mg/dL Creatinine (0.55-1.30) mg/dl Estimated GFR ML/MIN Glucose (70-110) MG/DL Lactic Acid (0.4-2.0) Calcium (8.5-10.1) mg/dL Magnesium (1.8-2.4) mg/dL Total Bilirubin (0.2-1.0) mg/dL AST (15-37) U/L ALT (12-78) U/L Alkaline Phosphatase (46-116) U/L Troponin I < 0.017 (0.000-0.056) ng/ml Serum Total Protein (6.4-8.2) gm/dL Albumin (3.4-5.0) g/dL Influenza Type A Ag NEGATIVE (NEGATIVE) Influenza Type B Ag NEGATIVE (NEGATIVE) RSV (PCR) NEGATIVE (Negative) 10/22/17 10/22/17 10/22/17 Range/Units 17:00 17:00 16:50 WBC 11.6 H (4.0-10.5) K/mm3 RBC 4.58 (4.1-5.6) M/mm3 Hgb 13.5 (12.5-18.0) gm/dl Hct 43.4 (42-50) % MCV 94.8 (78-100) fl MCH 29.5 (26-32) pg MCHC 31.1 L (32-36) g/dl RDW 15.8 H (11.5-14.0) % Plt Count 296 (150-450) K/mm3 MPV 10.5 H (6-9.5) fl INR (0.8-3.0) APTT (24.1-36.1) SECONDS Puncture Site RIGHT BRACHIAL pCO2 32 L (35-45) mmHg pO2 167 H* (75-100) mmHg Base Excess -0.3 (-2.0-2.0) O2 Saturation 96.2 (94-100) g/dF ABG pH 7.46 H (7.35-7.45) ABG HCO3 22.8 (22-28) ABG O2 Sat (Measured) 100.2 H (95-100) % Nguyễn Test NOT APPLICABLE A-a Gradient 506 a/A Ratio 0.25 Hemoglobin 13.6 Carboxyhemoglobin 2.8 (0.0-6.9) % THgb Methemoglobin 1.3 L (1.4-1.5) % Potassium 5.1 4.9 (3.5-5.1) Temperature 37.0 C POC O2 Flow Rate 100 % Vent Mode BiPAP Inspiratory BiPAP 12 Expiratory BiPAP 6 Sodium 141 (136-145) mEq/L Chloride 106 (98-107) mEq/L Carbon Dioxide 24.7 (21-32) mEq/L Anion Gap 15.4 H (5-15) MEQ/L BUN 38 H (9-20) mg/dL Creatinine 2.05 H (0.55-1.30) mg/dl Estimated GFR 33 ML/MIN Glucose 150 H (70-110) MG/DL Lactic Acid 2.0 (0.4-2.0) Calcium 8.8 (8.5-10.1) mg/dL Magnesium 2.0 (1.8-2.4) mg/dL Total Bilirubin 0.60 (0.2-1.0) mg/dL AST 36 (15-37) U/L ALT 37 (12-78) U/L Alkaline Phosphatase 98 (46-116) U/L Troponin I (0.000-0.056) ng/ml Serum Total Protein 7.0 (6.4-8.2) gm/dL Albumin 2.0 L (3.4-5.0) g/dL Influenza Type A Ag (NEGATIVE) Influenza Type B Ag (NEGATIVE) RSV (PCR) (Negative) - Progress Progress Note: 10/22/17 17:21 HR elevated. Febrile on rectal temp. CXR much worse. Bipap placed on arrival. He has worsened pneumonia despite treatment. Culture sent. Will start merrem for broad spectrum abtx coverage as he is at risk for MDRO organism with healthcare associated pneumonia. 10/22/17 19:[address] Barnes who agrees for IP ICU admission. Pt and daughter confirm SCO/ DNR status. [facility] not [facility]. [facility] and [facility] a call back confirming admission status. 10/22/17 19:29 Chik[facility] Hernandez [place] admitting called back and advised no bed tonite so admit here. Discussed with .: Cameron Will see patient in: hospital (full admit) Counseled pt/family regarding: lab results, diagnosis, need for follow-up, rad results - Departure Time of Disposition: 19:29 Departure Disposition: In-patient Admission (ICU) Clinical Impression: Healthcare-associated pneumonia, COPD exacerbation, Acute respiratory distress Condition: Fair Critical Care Time: Yes Critical Care Time(excluding separately billable procedures): 30-74 minutes Referrals: TEE DESAI [Primary Care Provider] - Instructions: Chronic Obstructive Pulmonary Disease
[2017-10-22 17:20] LABS: PTT 29.5 SECONDS (24.1-36.1)
[2017-10-22] MEDS ORDERED: Merrem 1 GM 1 G in Sodium Chloride 100ML MINI-BAG PLUS 100 ML IV ONE (17:26)
[2017-10-22 17:27] LABS: ANION GAP 15.4 MEQ/L (5-15); BILIRUBIN,TOTAL 0.6 mg/dL (0.2-1.0); Calcium 8.8 mg/dL (8.5-10.1); Carbon Dioxide 24.7 mEq/L (21-32); Creatinine 1 2.05 mg/dl (0.55-1.30); Potassium 5.1 mEq/L (3.5-5.1)
[2017-10-22] MEDS ORDERED: Merrem 1 GM IV ONE (17:34)
[2017-10-22] MEDS ORDERED: Sodium Chloride 0.9% 100 ML IVPB 100 ML IV ONE ×2 (17:34→22:48)
[2017-10-22 18:07] LABS: INFLUENZA A NEGATIVE (NEGATIVE); INFLUENZA B NEGATIVE (NEGATIVE); RESPIRATORY SYNCTIAL VIRUS NEGATIVE (Negative)
[2017-10-22 20:15] LABS: Lactic Acid 1.9 (0.4-2.0)
[2017-10-22] MEDS ORDERED: TYLENOL 325 MG PO PRN (20:23)
[2017-10-22] MEDS ORDERED: Pepcid 20 MG VIAL IV SCH (22:00)
[2017-10-22] MEDS ORDERED: DUONEB 0.5-3 MG/3 ml Neb IH ONE (22:03)
[2017-10-22] MEDS: DUONEB 0.5-3 MG/3 ml Neb IH SCH (22:03)
[2017-10-22] MEDS ORDERED: MERREM 500MG IV ONE (22:48)
[2017-10-22] MEDS: MERREM 500MG 500 MG in Sodium Chloride 100ML MINI-BAG PLUS 100 ML IV SCH (22:55)
[2017-10-22] MEDS: solu-MEDROL 125 MG IV SCH (22:55)
[2017-10-23 00:27] LABS: Eosinophil 2 % (0.00-3.0); Lymphocytes 10 % (24-44); Monocyte 6 % (0.0-12.0); Neutrophils 82 % (36.-66.); Platelet Estimate NORMAL (NORMAL); Total Cells Counted 100
[2017-10-23 00:32] LABS: Burr Cells 3+
[2017-10-23] MEDS: DUONEB 0.5-3 MG/3 ml Neb IH SCH ×5 (03:17→18:25)
[2017-10-23] MEDS: Sodium Chloride 0.9% 1000 ML 1,000 ML IV SCH ×3 (04:01→21:28)
[2017-10-23] MEDS: solu-MEDROL 125 MG IV SCH ×4 (04:05→23:37)
[2017-10-23] MEDS ORDERED: MERREM 500MG IV ONE (05:31)
[2017-10-23] MEDS ORDERED: Sodium Chloride 0.9% 100 ML IVPB 100 ML IV ONE (05:31)
[2017-10-23] MEDS: MERREM 500MG 500 MG in Sodium Chloride 100ML MINI-BAG PLUS 100 ML IV SCH ×3 (05:42→21:29)
[2017-10-23] MEDS ORDERED: ALBUTEROL SULFATE 90 MCG IH PRN (09:23)
[2017-10-23] MEDS ORDERED: PROVENTIL COMMON CANISTER IH PRN (09:26)
[2017-10-23] MEDS: ZOCOR 20MG PO SCH (09:53)
[2017-10-23] MEDS: Pepcid 20 MG PO SCH ×2 (09:53→21:30)
[2017-10-23] MEDS: Lopressor 25MG Tab PO SCH ×2 (09:54→21:30)
[2017-10-23] MEDS ORDERED: Lopressor 50 MG PO SCH (10:00)
[2017-10-23] MEDS ORDERED: ENOXAPARIN SODIUM SQ SCH (10:00)
[2017-10-23] MEDS ORDERED: LIPITOR 40MG PO SCH (10:00)
--- NOTE | 2017-10-23 10:32 | XRAY ---
Indication: Short of breath. Comparison: October 06, 2017. Portable chest again demonstrates COPD with scattered fibrosis/scarring bilaterally. New right base infiltrate, small left effusion, and slightly worsening left midlung consolidating opacity. Remaining cardiopulmonary structures unremarkable.
[2017-10-23] MEDS ORDERED: Lexapro 10 MG PO ONE (13:30)
[2017-10-23] MEDS ORDERED: Spiriva 18 Mcg/Cap Inhaler IH SCH (16:00)
[2017-10-23] MEDS: Flomax 0.4 MG PO SCH (17:22)
[2017-10-23] MEDS ORDERED: PHARMACY DOSING REQUEST MC ONE (17:36)
[2017-10-23 17:40] LABS: Appearance SLIGHTLY CLOUDY (CLEAR); Bilirubin NEGATIVE (NEGATIVE); Blood 250 Ery/ul (0-5); Glucose NEGATIVE (NEGATIVE); Ketones NEGATIVE (NEGATIVE); Leukocyte Esterase NEGATIVE (NEGATIVE); Nitrite NEGATIVE (NEGATIVE); Protein,Urine Dip 30 (Negative); Specific Gravity 1.025 (1.005-1.025); Urobilinogen NORMAL mg/dL (0-1)
[2017-10-23 18:03] LABS: Bacteria FEW /HPF (NEGATIVE); Epithelial Cells RARE /HPF (FEW); GRANULAR CASTS 0-2 /LPF (NEGATIVE); Hyaline Casts 0-2 /LPF (0-2)
[2017-10-23] MEDS: ADVAIR 500-50 DISKUS IH SCH (18:26)
[2017-10-23] MEDS: LEVOFLOXACIN 750MG/150ML D5W 750 MG/150 ML BAG IV SCH (19:25)
[2017-10-24] MEDS: DUONEB 0.5-3 MG/3 ml Neb IH SCH ×7 (00:07→22:22)
[2017-10-24] MEDS: solu-MEDROL 125 MG IV SCH ×4 (05:38→23:55)
[2017-10-24] MEDS: MERREM 500MG 500 MG in Sodium Chloride 100ML MINI-BAG PLUS 100 ML IV SCH ×3 (05:38→21:32)
[2017-10-24 06:10] LABS: Granulocyte Absolute (ANC) 14.83 (1.4-6.9); Hematocrit 33.6 % (42-50); Hemoglobin 10.1 gm/dl (12.5-18.0); Mean Cell Volume 96.6 fl (78-100); Mean Corpuscular Hgb Concent. 30.1 g/dl (32-36); Mean Platelet Volume 10.5 fl (6-9.5); Platelet Count 245 K/mm3 (150-450); Red Blood Count 3.48 M/mm3 (4.1-5.6); Red Cell Distribution Width 15.5 % (11.5-14.0); White Blood Count 15.7 K/mm3 (4.0-10.5)
[2017-10-24 06:27] LABS: ANION GAP 14.2 MEQ/L (5-15); Calcium 8.1 mg/dL (8.5-10.1); Carbon Dioxide 21.7 mEq/L (21-32); Creatinine 1 1.49 mg/dl (0.55-1.30); Potassium 4.7 mEq/L (3.5-5.1)
[2017-10-24] MEDS: ADVAIR 500-50 DISKUS IH SCH ×2 (06:55→18:18)
[2017-10-24 07:07] LABS: Lymphocytes 1 % (24-44); Neutrophils 99 % (36.-66.); Total Cells Counted 100
[2017-10-24 07:08] LABS: ANISOCYTOSIS 1+; Platelet Estimate NORMAL (NORMAL); Poikilocytosis 1+
[2017-10-24] MEDS: THERAGRAN MULTIVITAMIN PO SCH (09:51)
[2017-10-24] MEDS: ZOCOR 20MG PO SCH (09:51)
[2017-10-24] MEDS: Lopressor 25MG Tab PO SCH ×2 (09:51→21:32)
[2017-10-24] MEDS: Pepcid 20 MG PO SCH ×2 (09:51→21:32)
[2017-10-24] MEDS: Lexapro 10 MG PO SCH (09:54)
[2017-10-24] MEDS ORDERED: NON-FORMULARY ITEM (Multivitamin [Multivitamins] 1 EACH) PO SCH (10:00)
[2017-10-24] MEDS ORDERED: Spiriva 18 Mcg/Cap Inhaler IH SCH (10:00)
[2017-10-24] MEDS ORDERED: NON-FORMULARY ITEM (Fluticasone/Vilanterol [Breo Ellipta 100-25 Mcg Inh] 1 EACH) IH SCH (10:00)
--- NOTE | 2017-10-24 10:20 | HP ---
HISTORY OF PRESENT ILLNESS: This is an 82 year-old man who presented from [facility] to the emergency department with acute onset of shortness of breath. He states he has been having trouble breathing for some days but the nurses noted an acute desaturation at [facility] and an ambulance was called to have him transported. The patient reports that he continues to feel shortness of breath especially with exertion. He reports that whenever he gets a nebulizer treatment he feel like he is suffocating and it makes him anxious. He reports he has not urinated since he came although there is one urine output recorded by the nightshift approximately 0600 hours. He was recently in the hospital with pneumonia and discharged to [facility] where he was finishing a course of Cefdinir with his last dose 10/17/2017. The patient feels like he came off of his antibiotics too soon. REVIEW OF SYSTEMS: As noted in the history of present illness. PAST MEDICAL HISTORY: History of stroke, pneumonia, chronic obstructive pulmonary disease, atrial fibrillation, anxiety, recent shingles with post-herpetic neuralgia, hypertension. PAST SURGICAL HISTORY: Taken from the chart. Melanoma and lymph node removed. MEDICATIONS: Tylenol 650 mg p.o. every four hours as needed, Albuterol four times a day PRN, atorvastatin 40 mg p.o. daily, Breo 1 puff daily, Plavix 1 tablet daily, gabapentin 100 mg p.o. t.i.d. for post-herpetic neuralgia, Flomax 0.4 mg p.o. daily, Famotidine 20 mg p.o. b.i.d., terbinafine cream applied bilaterally to his feet every 12 hours for Athlete's foot. Metoprolol tartrate 25 mg p.o. b.i.d., albuterol nebulizer 3 ml inhaled every six hours as needed, Spiriva 1 puff daily. His family reports he is supposed to be on an anti-anxiety medication. They think buspirone but it is not on the medicine list from [facility] and they are unsure of [facility]. ALLERGIES: PENICILLIN-G. SOCIAL HISTORY: He used to smoke and no longer does. Currently at [facility] for rehabilitation. He is . PHYSICAL EXAMINATION: VITAL SIGNS: Temperature current 97.8F, temperature max 99.4F, heart rate 77 to 144 currently 80, respiratory rate 15 to 38 currently 26, blood pressure 97 to 121 over 62 to 82, weight 58.3 kg. Oxygen saturation currently 91% on 5 liters. GENERAL: The patient is lying in bed in no acute distress. His daughter, son-in-law, son and [id number] are at the bedside. CVS: His heart has an irregularly irregular rhythm with a normal rate. CHEST: Scattered wheezes throughout when auscultated anteriorly. ABDOMEN: Soft, nontender, nondistended with normal bowel sounds. EXTREMITIES: No clubbing, cyanosis or edema. SKIN: He has some healing lesions over his left abdomen in the dermatome distribution. LABORATORY DATA AND TESTS: White blood cell count 11,600 with 82% neutrophils, 10% lymphocytes. Creatinine 2.0. Glucose 150. Influenza A/B and respiratory syncytial virus were negative. Chest x-ray was read as right base infiltrate, small left pleural effusion and a left midline consolidation. Please see the radiologist report for the full dictation. ASSESSMENT AND PLAN: 1) MULTILOBAR PNEUMONIA: He was started on Meropenem in the emergency department. He was placed on BiPAP. He did well on this overnight. He was switched over to nasal cannula at breakfast time. I will ask Dr. Diaz Mcmahon to see the patient while he is here. 2) ACUTE RESPIRATORY FAILURE WITH HYPOXIA: Again we will continue to support him. He confirms that he does not want to be placed on a ventilator or have chest compressions if something would happen suddenly and his heart would stop beating or stopped breathing. 3) CHRONIC OBSTRUCTIVE PULMONARY DISEASE: Will continue with methylprednisolone and DuoNeb. Again will consult Dr. Diaz Mcmahon. 4) NEW ONSET ATRIAL FIBRILLATION: I have anticoagulated him with Lovenox 1 mg/kg, will ask Dr. Lopez to see him and has ordered an echocardiogram and will need to make decision on half-way anticoagulation once his echocardiogram is back. 5) ANXIETY: He and his family are requesting medication to help with anxiety. They do not feel like the buspirone necessarily helped well so will try Lexapro 10 mg p.o. daily with his first dose today.
[2017-10-24] MEDS ORDERED: Neurontin 100 MG PO ONE (10:30)
--- NOTE | 2017-10-24 10:35 | CONS ---
CONSULT DATE: 10/23/2017 BRIEF HISTORY: This is an 82 year-old male who was seen because of atrial fibrillation. The patient was primarily admitted because of respiratory tract infection. Apparently he desaturated to 70's. He seems to be doing well. He has a history of chronic obstructive lung disease. In addition, he also has Herpes zoster. While being monitored he went into atrial fibrillation with a controlled ventricular response. He denies any chest pains. He is short of breath but this seems to be getting better. He has never had myocardial infarction or heart failure. MEDICATIONS: His home medications are Lipitor, Metoprolol, Albuterol, Plavix. PAST SURGICAL HISTORY: Surgery for melanoma. CARDIAC RISK FACTORS: Negative for diabetes. Positive for hypertension. No known hyperlipidemia. He has a remote history of smoking. FAMILY HISTORY: Negative for premature coronary artery disease. 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 RESPIRATORY: Chronic obstructive lung disease. GI: No history of peptic ulcer or colon disorder. : History of renal failure. PERIPHERAL VASCULAR: No history of DVT or claudication. MUSCULOSKELETAL: He has some degenerative joint disorder. SKIN: History of melanoma. He currently has shingles. SOCIAL HISTORY: He lives at home. He is . He has no significant alcohol intake. PHYSICAL EXAMINATION: The blood pressure is 110/80, heart rate 97, respirations about 16. GENERAL: The patient is an elderly male who is alert, oriented, gets short of breath easily with just plain conversation. HEENT: Slightly pale conjunctivae. NECK: External jugulars prominent. CHEST: Scattered rhonchi in both lung rey with some wheezing. CARDIAC: Heart tones are variable. The rhythm is atrial fibrillation. There is no S3 gallop. ABDOMEN: Soft with normal bowel sounds. EXTREMITIES: No significant edema with decreased distal pulses. ASSESSMENT AND PLAN: 1) ATRIAL FIBRILLATION: Goal of treatment would be heart rate control and anticoagulation. I discussed with him at length that he needs to be on anticoagulation because of his MINNIE score being around 4. He was assessed the benefits of stroke prevention. 2) HYPERTENSION. 3) CHRONIC OBSTRUCTIVE LUNG DISEASE.
--- NOTE | 2017-10-24 12:00 | CONS ---
CONSULT DATE: 10/23/2017 HISTORY: Yves Concepcion is an 82 year-old male who was recently hospitalized for pneumonia. The patient was also treated for Herpes Zoster involving left side of upper abdomen. He was discharged to [facility] where he complained of increasing shortness of breath. He was treated by paramedics with breathing treatments without much clinical improvement and he was brought to the emergency room at [facility]. He has been hospitalized since yesterday. The patient is currently in ICU. He had arterial blood gases drawn that actually showed respiratory alkalosis. He does appear mildly tachypneic at rest. He also has been diagnosed of having atrial fibrillation. On current admission he was evaluated by Dr. Lopez and was started on full dose anticoagulation. PAST MEDICAL HISTORY: The patient reports he has been diagnosed with chronic obstructive pulmonary disease for the past four to five years. His effort tolerance has been moderately compromised. He does use Symbicort, Spiriva and Albuterol at home. He however has not have any previous pulmonary infections until now. Besides that there is history of hypertension, atrial fibrillation, anxiety, hyperlipidemia. PAST SURGICAL HISTORY: No recent surgery. PERSONAL AND SOCIAL HISTORY: He is a former smoker. He quit smoking about ten years ago. 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 He lives with his . His is currently sick and has been recuperating at [facility] as well. MEDICATIONS: Home and current medications are reviewed. ALLERGIES: PENICILLIN-G. PHYSICAL EXAMINATION: This is an elderly male who appears mildly tachypneic. Vital signs noted. HEENT: Normocephalic. Oral exam unremarkable. Partially edentulous. NECK: Supple. CVS: First and second heart sounds are normal, regular, rhythmic. Currently in sinus rhythm. RESPIRATORY: Shows diminished breath sounds, rhonchi and crackles are heard at bases. ABDOMEN: Soft. Left upper abdominal healing rash from Herpes zoster. EXTREMITIES: He has LEFTY hose in place. LABORATORY DATA AND TESTS: Troponin I has been negative. White blood cell count 11.6, hemoglobin 13.5, hematocrit 43, PLT 296,000. A pH 7.46, pCO2 32 and pO2 167. Sodium 141, potassium 5.1, chloride 106, bicarb 25, glucose 150, BUN 38, creatinine 2.0. Chest x-ray showed bibasilar infiltrates with small effusion. Echo showed left ventricular ejection fraction of 60%, right ventricular systolic pressure 31 mm of Mercury. ASSESSMENT: This is an 82 year old man admitted with: 1) Acute hypoxic respiratory failure. 2) Bilateral pneumonia. Immunocompromised from recent zoster. 3) Underlying chronic obstructive pulmonary disease with exacerbation. 4) Renal failure, acute versus chronic? 5) Paroxysmal atrial fibrillation currently in sinus rhythm. 6) Anxiety disorder. RECOMMENDATIONS: I agree with present treatment. Will add quinolone for atypical coverage. He was tested for influenza which has been negative along with respiratory syncytial virus. Monitor renal function. Check sputum culture. Gradual steroid taper. Resume bronchodilator. The patient wishes to be Do Not Resuscitate. I have discussed with him and he has completely understands what it means and implications of avoiding intubation and still wishes to remain a No Code given his age and comorbidities. DNR was signed respecting his wishes. I will continue to follow. Thank you for allowing me to participate in the care of Yves Concepcion.
[2017-10-24] MEDS ORDERED: AFRIN NASAL SPRAY NS PRN ×2 (12:22→12:39)
[2017-10-24] MEDS ORDERED: PHARMACY DOSING REQUEST MC ONE (12:30)
--- NOTE | 2017-10-24 14:02 | PCM.NOTE ---
Date and Time: 10/24/17 4629 Subjective Assessment: He reports that he continues to get short of breath very easily. Dr. Lopez and Dr. Golden saw him yesterday. He feels like his nose is plugged up and it is hard to breath through the nasal cannula with his nose plugged. - Review of Systems Constitutional: Weakness Eyes: No Symptoms Ears, Nose, & Throat: No Symptoms Respiratory: Cough, Short Of Breath, Wheezing Cardiac: No Symptoms Abdominal/Gastrointestinal: No Symptoms Genitourinary Symptoms: No Symptoms Musculoskeletal: No Symptoms Skin: No Symptoms Objective Exam General Appearance: other (tachypnea, short of breath with only speaking for a short time.) Neurologic Exam: alert, cooperative, normal mood/affect Skin Exam: normal color, warm, dry, No rash Respiratory Exam: airway intact, other (scattered rhonchi bilat, equal breath sounds, scattered wheezes, tachypnea), No crackles/rales Cardiovascular Exam: regular rate/rhythm, normal heart sounds, No murmur, No friction rub, No gallop Gastrointestinal/Abdomen Exam: soft, normal bowel sounds, No tenderness, No distention, No mass Extremity Exam: other (no c/c/e) OBJECTIVE DATA Vital Signs: Vital Signs - 24 hr Temp Pulse Resp BP Pulse Ox 10/24/17 12:00 79 21 125/82 93 L 10/24/17 10:38 81 24 95 10/24/17 08:00 90 22 116/86 93 L 10/24/17 06:55 84 24 94 L 10/24/17 03:35 97.6 F 74 24 119/71 95 10/24/17 03:15 75 21 95 10/24/17 00:01 76 10/23/17 23:57 76 23 119/74 96 10/23/17 20:00 98.2 F 90 26 H 113/69 96 10/23/17 18:27 84 24 95 10/23/17 17:00 97.7 F 100 H 23 94 L 10/23/17 16:00 100 H 23 10/23/17 15:00 97.6 F 100 H 23 158/94 95 Oxygen-Last 24 hours O2 Percentage 6 Liters = 44% Oxygen Flowrate (L/min)-RT 8 Oxygen Flowrate (L/min)-RT 8 Oxygen Flowrate (L/min)-RT 8 Oxygen Flowrate (L/min)-RT 8 Pain Assessment - Last Documented Pain Intensity 0 Pain Scale Used 0-10 Pain Scale Intake and Output: Intake & Output 10/22/17 10/23/17 10/24/17 10/25/17 06:59 06:59 06:59 06:59 Intake Total 761 2013 300 Output Total 550 Balance 761 1463 300 Weight 58.377 kg 60.5 kg Lab Results: Lab Results-Last 24 Hours 10/24/17 10/24/17 Range/Units 05:35 05:35 WBC 15.7 H (4.0-10.5) K/mm3 RBC 3.48 L (4.1-5.6) M/mm3 Hgb 10.1 L (12.5-18.0) gm/dl Hct 33.6 L (42-50) % MCV 96.6 (78-100) fl MCH 29.0 (26-32) pg MCHC 30.1 L (32-36) g/dl RDW 15.5 H (11.5-14.0) % Plt Count 245 (150-450) K/mm3 MPV 10.5 H (6-9.5) fl Segmented Neutrophils 99 H (36.-66.) % Lymphocytes (Manual) 1 L (24-44) % Differential Comment ABNORMAL Platelet Estimate NORMAL (NORMAL) Poikilocytosis 1+ Anisocytosis 1+ Sodium 144 (136-145) mEq/L Potassium 4.7 (3.5-5.1) mEq/L Chloride 113 H (98-107) mEq/L Carbon Dioxide 21.7 (21-32) mEq/L Anion Gap 14.2 (5-15) MEQ/L BUN 45 H (9-20) mg/dL Creatinine 1.49 H (0.55-1.30) mg/dl Estimated GFR 48 ML/MIN Glucose 126 H (70-110) MG/DL Calcium 8.1 L (8.5-10.1) mg/dL Radiology Exams: Radiology Procedures Category Date Time Status ECHO W/2D AND DOPPLER [US] Routine Exams 10/24/17 08:00 Taken Multi-Disciplinary Progress Notes: Multi-Disciplinary Progress Notes 10/24/17 08:39 Pharmacy Note by STOCK CLERK,PHARM Pharmacy to switch from Lovenox to Xarelto. Patient's CrCl is 33 ml/min, so we lowered his Xarelto dose to 15 mg daily with evening meal. We will monitor his renal function and adjust the dose as necessary. Brigette Sosa, Student [facility] Initialized on 10/24/17 08:39 - END OF NOTE Assessment/Plan (1) Pneumonia Current Visit: Yes Status: Acute Qualifiers: Pneumonia type: due to unspecified organism Laterality: bilateral Lung location: unspecified part of lung Qualified Code(s): J18.9 - Pneumonia, unspecified organism Assessment & Plan: Continue meropenem. Dr. Huey Mcmahon consulted and added levofloxacin. Continue with oxygen and breathing treatments. Code(s): J18.9 - PNEUMONIA, UNSPECIFIED ORGANISM (2) Paroxysmal atrial fibrillation Current Visit: Yes Status: Acute Assessment & Plan: His rate is controlled with metoprolol. Dr. Lopez saw him and started him on oral anticoagulation and stopped lovenox. Code(s): I48.0 - PAROXYSMAL ATRIAL FIBRILLATION (3) Anxiety Current Visit: Yes Status: Acute Assessment & Plan: Continue lexapro. Code(s): F41.9 - ANXIETY DISORDER, UNSPECIFIED (4) Shingles Current Visit: No Status: Acute Assessment & Plan: Will start neurontin for pain and help with post herpatic neuralgia. Code(s): B02.9 - ZOSTER WITHOUT COMPLICATIONS (5) Acute hypoxemic respiratory failure Current Visit: No Status: Acute Code(s): J96.01 - ACUTE RESPIRATORY FAILURE WITH HYPOXIA (6) Renal insufficiency Current Visit: No Status: Acute
[2017-10-24] MEDS: Dextrose 5% -0.45 NaCl 1000 ML 1,000 ML IV SCH (14:28)
[2017-10-24] MEDS: Neurontin 100 MG PO SCH ×2 (15:45→21:32)
[2017-10-24] MEDS: Flomax 0.4 MG PO SCH (15:45)
[2017-10-24] MEDS ORDERED: XARELTO 10 MG TABLET PO SCH (18:00)
[2017-10-24] MEDS: XARELTO 10 MG TABLET PO SCH (18:21)
[2017-10-24] MEDS: BENADRYL 25 MG CAPSULE PO PRN (21:32)
[2017-10-25] MEDS: DUONEB 0.5-3 MG/3 ml Neb IH SCH ×6 (01:40→23:16)
[2017-10-25] MEDS: Dextrose 5% -0.45 NaCl 1000 ML 1,000 ML IV SCH ×2 (04:05→14:23)
[2017-10-25] MEDS: solu-MEDROL 125 MG IV SCH ×4 (05:35→23:47)
[2017-10-25] MEDS: MERREM 500MG 500 MG in Sodium Chloride 100ML MINI-BAG PLUS 100 ML IV SCH ×3 (05:35→21:57)
[2017-10-25 07:35] LABS: Granulocyte Absolute (ANC) 12.35 (1.4-6.9); Hematocrit 32.6 % (42-50); Hemoglobin 9.8 gm/dl (12.5-18.0); Mean Cell Volume 96.7 fl (78-100); Mean Corpuscular Hgb Concent. 30.1 g/dl (32-36); Mean Platelet Volume 10.3 fl (6-9.5); Platelet Count 253 K/mm3 (150-450); Red Blood Count 3.37 M/mm3 (4.1-5.6); Red Cell Distribution Width 15.7 % (11.5-14.0); White Blood Count 13.1 K/mm3 (4.0-10.5)
[2017-10-25 08:20] LABS: ANION GAP 12.8 MEQ/L (5-15); Calcium 8.1 mg/dL (8.5-10.1); Carbon Dioxide 20.9 mEq/L (21-32); Creatinine 1 1.39 mg/dl (0.55-1.30); Potassium 4.7 mEq/L (3.5-5.1)
[2017-10-25 08:29] LABS: BAND 3 % (0.0-2.0); Lymphocytes 4 % (24-44); Monocyte 2 % (0.0-12.0); Neutrophils 91 % (36.-66.); Platelet Estimate NORMAL (NORMAL); Total Cells Counted 100
--- NOTE | 2017-10-25 08:56 | PCM.NOTE ---
Date and Time: 10/25/17 0856 Subjective Assessment: Patient reports that he feels like his breathing is better. He's not sure if he wants to advance his diet. He continues to have some shortness of breath. He denies chest pain or palpitations. - Review of Systems Constitutional: No Symptoms Eyes: No Symptoms Ears, Nose, & Throat: No Symptoms Respiratory: Cough, Short Of Breath Cardiac: No Symptoms Abdominal/Gastrointestinal: No Symptoms Genitourinary Symptoms: No Symptoms Musculoskeletal: No Symptoms Skin: No Symptoms Objective Exam General Appearance: alert, other (shortness of breath, tachypnea, no retractions ) Neurologic Exam: alert, cooperative, normal mood/affect Skin Exam: normal color, warm, dry, No rash Respiratory Exam: other (distant breath sounds throughout, no crackles, no wheezes) Cardiovascular Exam: regular rate/rhythm, normal heart sounds, No murmur, No friction rub, No gallop Gastrointestinal/Abdomen Exam: soft, normal bowel sounds, No tenderness, No distention, No mass Extremity Exam: other (no c/c/e) OBJECTIVE DATA Vital Signs: Vital Signs - 24 hr Temp Pulse Resp BP Pulse Ox 10/25/17 06:57 77 16 99 10/25/17 04:00 97.5 F 66 17 131/82 100 10/25/17 02:49 70 17 97 10/25/17 00:01 72 10/25/17 00:00 97.6 F 72 19 132/68 97 10/24/17 22:22 76 19 100 10/24/17 20:00 97.8 F 95 H 27 H 131/78 96 10/24/17 18:23 88 22 95 10/24/17 16:00 97.4 F 97 H 19 125/81 95 10/24/17 14:59 84 24 96 10/24/17 12:00 79 21 125/82 93 L 10/24/17 10:38 81 24 95 Oxygen-Last 24 hours O2 Percentage 80% O2 Percentage 80% O2 Percentage 80% Oxygen Flowrate (L/min)-RT 10 Oxygen Flowrate (L/min)-RT 8 Pain Assessment - Last Documented Pain Intensity 0 Pain Scale Used 0-10 Pain Scale Intake and Output: Intake & Output 10/23/17 10/24/17 10/25/17 10/26/17 06:59 06:59 06:59 06:59 Intake Total 762012 260 Output Total 550 415 Balance 760 4513 6976 Weight 58.377 kg 60.5 kg 65.3 kg Lab Results: Lab Results-Last 24 Hours 10/24/17 10/25/17 10/25/17 Range/Units 05:30 06:40 06:40 WBC 13.1 H (4.0-10.5) K/mm3 RBC 3.37 L (4.1-5.6) M/mm3 Hgb 9.8 L (12.5-18.0) gm/dl Hct 32.6 L (42-50) % MCV 96.7 (78-100) fl MCH 29.0 (26-32) pg MCHC 30.1 L (32-36) g/dl RDW 15.7 H (11.5-14.0) % Plt Count 253 (150-450) K/mm3 MPV 10.3 H (6-9.5) fl Segmented Neutrophils 91 H (36.-66.) % Band Neutrophils 3 H (0.0-2.0) % Lymphocytes (Manual) 4 L (24-44) % Monocytes (Manual) 2 (0.0-12.0) % Differential Comment NORMAL Platelet Estimate NORMAL (NORMAL) Sodium 143 (136-145) mEq/L Potassium 4.7 (3.5-5.1) mEq/L Chloride 114 H (98-107) mEq/L Carbon Dioxide 20.9 L (21-32) mEq/L Anion Gap 12.8 (5-15) MEQ/L BUN 41 H (9-20) mg/dL Creatinine 1.39 H (0.55-1.30) mg/dl Estimated GFR 52 ML/MIN Glucose 149 H (70-110) MG/DL Calcium 8.1 L (8.5-10.1) mg/dL NT-Pro-B Natriuret Pep 1327 H (0-450) pg/ml Radiology Exams: Radiology Procedures Category Date Time Status ECHO W/2D AND DOPPLER [US] Routine Exams 10/24/17 08:00 Taken Assessment/Plan (1) Pneumonia Current Visit: Yes Status: Acute Qualifiers: Pneumonia type: due to unspecified organism Laterality: bilateral Lung location: unspecified part of lung Qualified Code(s): J18.9 - Pneumonia, unspecified organism Assessment & Plan: Continue meropenem and levofloxacin. Dr. Huey Mcmahon is following. Continue oxygen and breathing treatments. Code(s): J18.9 - PNEUMONIA, UNSPECIFIED ORGANISM (2) Paroxysmal atrial fibrillation Current Visit: Yes Status: Acute Assessment & Plan: Continue anticoagulation. His rate is controlled. Dr. Lopez has seen him. Echo ordered, no report yet. Code(s): I48.0 - PAROXYSMAL ATRIAL FIBRILLATION (3) Anxiety Current Visit: Yes Status: Acute Assessment & Plan: Better today. Continue lexapro. Will take 4-6 weeks to see full effect from lexapro. Code(s): F41.9 - ANXIETY DISORDER, UNSPECIFIED (4) Shingles Current Visit: No Status: Acute Assessment & Plan: Continue gabapentin for pain and post herpatic neuralgia. Code(s): B02.9 - ZOSTER WITHOUT COMPLICATIONS (5) Acute hypoxemic respiratory failure Current Visit: No Status: Acute Assessment & Plan: He continues to require a high amount of oxygen with quick desaturation with movement/talking. Continue to monitor in ICU. Code(s): J96.01 - ACUTE RESPIRATORY FAILURE WITH HYPOXIA (6) Renal insufficiency Current Visit: No Status: Acute Assessment & Plan: Appears to be at baseline.
[2017-10-25] MEDS: Neurontin 100 MG PO SCH ×3 (09:39→21:56)
[2017-10-25] MEDS: Pepcid 20 MG PO SCH ×2 (09:39→21:57)
[2017-10-25] MEDS: Lopressor 25MG Tab PO SCH ×2 (09:39→21:57)
[2017-10-25] MEDS: THERAGRAN MULTIVITAMIN PO SCH (09:39)
[2017-10-25] MEDS: Lexapro 10 MG PO SCH (09:39)
[2017-10-25] MEDS: ZOCOR 20MG PO SCH (09:39)
[2017-10-25] MEDS: ADVAIR 500-50 DISKUS IH SCH (10:00)
[2017-10-25] MEDS: Flomax 0.4 MG PO SCH (16:09)
[2017-10-25] MEDS: LEVOFLOXACIN 750MG/150ML D5W 750 MG/150 ML BAG IV SCH (17:53)
[2017-10-25] MEDS: XARELTO 10 MG TABLET PO SCH (17:53)
[2017-10-26] MEDS: DUONEB 0.5-3 MG/3 ml Neb IH SCH ×6 (03:10→23:51)
[2017-10-26] MEDS: solu-MEDROL 125 MG IV SCH ×4 (05:27→23:50)
[2017-10-26] MEDS: MERREM 500MG 500 MG in Sodium Chloride 100ML MINI-BAG PLUS 100 ML IV SCH ×3 (05:27→21:14)
[2017-10-26 06:16] LABS: Granulocyte Absolute (ANC) 11.48 (1.4-6.9); Hematocrit 34.7 % (42-50); Hemoglobin 10.4 gm/dl (12.5-18.0); Mean Cell Volume 96.9 fl (78-100); Mean Platelet Volume 10.5 fl (6-9.5); Platelet Count 263 K/mm3 (150-450); Red Blood Count 3.58 M/mm3 (4.1-5.6); Red Cell Distribution Width 15.8 % (11.5-14.0); White Blood Count 12.1 K/mm3 (4.0-10.5)
[2017-10-26 06:20] LABS: ANION GAP 12.5 MEQ/L (5-15); Calcium 8.2 mg/dL (8.5-10.1); Carbon Dioxide 22.4 mEq/L (21-32); Creatinine 1 1.41 mg/dl (0.55-1.30); Potassium 4.8 mEq/L (3.5-5.1)
[2017-10-26] MEDS: ADVAIR 500-50 DISKUS IH SCH ×2 (06:56→19:03)
[2017-10-26] MEDS: Dextrose 5% -0.45 NaCl 1000 ML 1,000 ML IV SCH ×4 (09:05→22:56)
[2017-10-26] MEDS: Lopressor 25MG Tab PO SCH ×2 (09:08→21:15)
[2017-10-26] MEDS: Pepcid 20 MG PO SCH ×2 (09:08→21:15)
[2017-10-26] MEDS: ZOCOR 20MG PO SCH (09:08)
[2017-10-26] MEDS: Lexapro 10 MG PO SCH (09:12)
[2017-10-26] MEDS: THERAGRAN MULTIVITAMIN PO SCH (09:12)
[2017-10-26] MEDS: Neurontin 100 MG PO SCH ×3 (09:12→21:15)
--- NOTE | 2017-10-26 11:52 | PCM.NOTE ---
Date and Time: 10/26/17 1146 Subjective Assessment: Yesterday he got very short of breath with any movement and with eating. His nurse yesterday noted that he desated to the 70's. He denies swelling but his daughter said his hands are swollen. He feels like his breathing may be a little bit better this am. He doesn't have much of an appetite. He reports he does not feel constipated but hasn't had very much stool either. The nursing staff says Dr. Golden will be in to see him today. His daughter does not feel like he is improving very fast. She reports before he was discharged this last time, he was not on oxygen at home. - Review of Systems Constitutional: Weakness Eyes: No Symptoms Ears, Nose, & Throat: No Symptoms Respiratory: Orthopnea, Short Of Breath, Wheezing Cardiac: No Symptoms Abdominal/Gastrointestinal: No Symptoms Genitourinary Symptoms: No Symptoms Musculoskeletal: No Symptoms Skin: No Symptoms Objective Exam General Appearance: other (short of breath especially with talking.) Neurologic Exam: alert, cooperative, normal mood/affect Skin Exam: normal color, warm, dry, No rash Respiratory Exam: other (distant breath sounds throughout, no crackles, no wheezes) Cardiovascular Exam: regular rate/rhythm, normal heart sounds, No friction rub, No gallop, No tachycardia Gastrointestinal/Abdomen Exam: soft, normal bowel sounds, No tenderness, No distention, No mass Extremity Exam: other (mild swelling of hands, no c/c/e of legs) OBJECTIVE DATA Vital Signs: Vital Signs - 24 hr Temp Pulse Resp BP Pulse Ox 10/26/17 10:22 73 22 98 10/26/17 09:00 97.6 F 62 16 131/82 10/26/17 08:33 93 H 28 H 10/26/17 06:56 66 15 96 10/26/17 05:50 97.3 F 82 19 126/75 95 10/26/17 04:00 67 15 96 10/26/17 03:10 74 15 96 10/25/17 23:59 71 10/25/17 23:55 71 17 96 10/25/17 23:17 71 16 97 10/25/17 20:00 97.6 F 87 24 103/66 95 10/25/17 17:52 88 24 88 L 10/25/17 16:00 97.8 F 92 H 20 139/79 100 10/25/17 14:00 78 20 98 10/25/17 12:00 97.4 F 83 28 H 123/74 95 Oxygen-Last 24 hours Oxygen Flowrate (L/min)-RT 8 Oxygen Flowrate (L/min)-RT 8 Oxygen Flowrate (L/min)-RT 8 Oxygen Flowrate (L/min)-RT 8 Oxygen Flowrate (L/min)-RT 8 Oxygen Flowrate (L/min)-RT 8 Oxygen Flowrate (L/min)-RT 8 Pain Assessment - Last Documented Pain Intensity 0 Pain Scale Used 0-10 Pain Scale Intake and Output: Intake & Output 10/24/17 10/25/17 10/26/17 10/27/17 06:59 06:59 06:59 06:59 Intake Total 20121 2358 Output Total 550 415 600 Balance 1463 3196 8068 Weight 60.5 kg 65.3 kg 65.5 kg Lab Results: Lab Results-Last 24 Hours 10/26/17 10/26/17 Range/Units 05:35 05:35 WBC 12.1 H (4.0-10.5) K/mm3 RBC 3.58 L (4.1-5.6) M/mm3 Hgb 10.4 L (12.5-18.0) gm/dl Hct 34.7 L (42-50) % MCV 96.9 (78-100) fl MCH 29.0 (26-32) pg MCHC 30.0 L (32-36) g/dl RDW 15.8 H (11.5-14.0) % Plt Count 263 (150-450) K/mm3 MPV 10.5 H (6-9.5) fl Sodium 142 (136-145) mEq/L Potassium 4.8 (3.5-5.1) mEq/L Chloride 112 H (98-107) mEq/L Carbon Dioxide 22.4 (21-32) mEq/L Anion Gap 12.5 (5-15) MEQ/L BUN 45 H (9-20) mg/dL Creatinine 1.41 H (0.55-1.30) mg/dl Estimated GFR 51 ML/MIN Glucose 154 H (70-110) MG/DL Calcium 8.2 L (8.5-10.1) mg/dL Assessment/Plan (1) Pneumonia Current Visit: Yes Status: Acute Qualifiers: Pneumonia type: due to unspecified organism Laterality: bilateral Lung location: unspecified part of lung Qualified Code(s): J18.9 - Pneumonia, unspecified organism Assessment & Plan: Continue meropenem and levofloxacin. Dr. Golden to recheck him today. Continue with oxygen which he continues to require. Bipap as needed. Continue duonebs. Code(s): J18.9 - PNEUMONIA, UNSPECIFIED ORGANISM (2) Paroxysmal atrial fibrillation Current Visit: Yes Status: Acute Assessment & Plan: Continue with anticoagulation, rate controlled. Code(s): I48.0 - PAROXYSMAL ATRIAL FIBRILLATION (3) Anxiety Current Visit: Yes Status: Acute Code(s): F41.9 - ANXIETY DISORDER, UNSPECIFIED (4) Shingles Current Visit: No Status: Acute Assessment & Plan: Continue with gabapentin for post herpatic neuralgia. Code(s): B02.9 - ZOSTER WITHOUT COMPLICATIONS (5) Acute hypoxemic respiratory failure Current Visit: No Status: Acute Code(s): J96.01 - ACUTE RESPIRATORY FAILURE WITH HYPOXIA (6) Renal insufficiency Current Visit: No Status: Acute Assessment & Plan: Stable at this time.
[2017-10-26 12:01] LABS: Lymphocytes 2 % (24-44); Monocyte 1 % (0.0-12.0); Neutrophils 97 % (36.-66.); Total Cells Counted 100
[2017-10-26 12:02] LABS: ANISOCYTOSIS 1+; Platelet Estimate NORMAL (NORMAL); Poikilocytosis 1+
[2017-10-26] MEDS: Mucomyst 200 MG/ML IH SCH ×2 (15:13→18:55)
[2017-10-26] MEDS: Flomax 0.4 MG PO SCH (15:39)
--- NOTE | 2017-10-26 15:40 | PROG NOTE ---
DATE: 10/26/2017 Events noted. The patient was evaluated by me last Tuesday for chronic obstructive pulmonary disease exacerbation. He has shown some clinical improvement although still remains short of breath on minimal activity. The patient still remains on Oxymizer. He has thick expectoration that he has difficulty in coughing up. Currently his heart rate is 84. Blood pressure within normal limits. Saturation is 92% on Oxymizer. PHYSICAL EXAMINATION: HEENT: Normocephalic. Pupils are reactive. Oral exam is unremarkable. CVS: First and second heart sounds normal, regular, rhythmic. RESPIRATORY: Increase in AP diameter of chest. Breath sounds are diminished. Rhonchi has improved since last week's examination. ABDOMEN: Soft. No significant edema is noted. LAB DATA AND TESTS: Sodium 142, potassium 4.8, chloride 112, bicarb 22, glucose 154, BUN 45, creatinine 1.4. White blood cell count 12.1, hemoglobin 10.4, hematocrit 35, PLT 263,000. Echo showed left ventricular ejection fraction of 60%, right ventricular systolic pressure of 31 mm of Mercury. No new x-ray has been performed. ASSESSMENT: This is an 82 year-old male admitted with:1) Chronic obstructive pulmonary disease with exacerbation. 2) Acute bronchitis. 3) Hypoxic respiratory failure. 4) Recent Herpes Zoster. 5) Renal insufficiency, improved. 6) Paroxysmal atrial fibrillation currently in sinus rhythm. RECOMMENDATIONS: Continue present treatment. The patient needs pulmonary toilet. Discussed options. Would benefit from Mucomyst with flutter valve as well as chest percussion therapy once the patient's saturations stabilize somewhat. He would benefit from inpatient pulmonary rehab. The patient is definitely sick needing continuing IV therapy as well as continuation of hospitalization. I will continue to follow.
[2017-10-26] MEDS: XARELTO 10 MG TABLET PO SCH (17:01)
[2017-10-26] MEDS: BENADRYL 25 MG CAPSULE PO PRN (21:15)
[2017-10-27] MEDS: DUONEB 0.5-3 MG/3 ml Neb IH SCH ×5 (03:55→19:52)
[2017-10-27] MEDS: solu-MEDROL 125 MG IV SCH ×3 (05:21→21:37)
[2017-10-27] MEDS: MERREM 500MG 500 MG in Sodium Chloride 100ML MINI-BAG PLUS 100 ML IV SCH ×3 (05:21→21:38)
[2017-10-27 06:28] LABS: Granulocyte Absolute (ANC) 9.86 (1.4-6.9); Hematocrit 35.9 % (42-50); Mean Cell Volume 95.7 fl (78-100); Mean Corpuscular Hemoglobin 29.3 pg (26-32); Mean Corpuscular Hgb Concent. 30.6 g/dl (32-36); Mean Platelet Volume 10.4 fl (6-9.5); Platelet Count 264 K/mm3 (150-450); Red Blood Count 3.75 M/mm3 (4.1-5.6); White Blood Count 10.6 K/mm3 (4.0-10.5)
[2017-10-27] MEDS: ADVAIR 500-50 DISKUS IH SCH ×2 (06:47→19:56)
[2017-10-27] MEDS: Mucomyst 200 MG/ML IH SCH ×4 (06:47→19:53)
[2017-10-27 06:49] LABS: ANION GAP 10.9 MEQ/L (5-15); Calcium 8.2 mg/dL (8.5-10.1); Carbon Dioxide 22.9 mEq/L (21-32); Creatinine 1 1.3 mg/dl (0.55-1.30); Potassium 4.7 mEq/L (3.5-5.1)
[2017-10-27 08:24] LABS: Lymphocytes 5 % (24-44); Monocyte 3 % (0.0-12.0); Neutrophils 92 % (36.-66.); Poikilocytosis 1+; Total Cells Counted 100
[2017-10-27 08:25] LABS: ANISOCYTOSIS 1+; Platelet Estimate NORMAL (NORMAL)
--- NOTE | 2017-10-27 08:41 | PCM.NOTE ---
Date and Time: 10/27/17 0836 Subjective Assessment: Nursing notes reviewed. Dr. Mcmahon saw patient and spoke with his daughter also. She told him that she does not want him to be transferred. I think that a transfer would be precarious with his hypoxia and high oxygen requirement. Nursing notes say he did not want to get out of bed. Patient denies any complaints of pain today or constipation. He reports not much appetite and not eating much. The RT was able to wean his oxygen some while he was sleeping. He denies any pain in his hands. - Review of Systems Constitutional: Weakness Eyes: No Symptoms Ears, Nose, & Throat: No Symptoms Respiratory: Cough, Short Of Breath Cardiac: No Symptoms Abdominal/Gastrointestinal: No Symptoms Genitourinary Symptoms: No Symptoms Musculoskeletal: No Symptoms Skin: No Symptoms, Other (swelling in hands) Objective Exam General Appearance: other (dyspnea, pursed lipped breathing) Neurologic Exam: alert, cooperative, normal mood/affect Skin Exam: normal color, warm, dry, other (hands and arms swollen bilat) Respiratory Exam: other (distant breath sounds throughout, rhonchi at right base , cough with deep breaths) Cardiovascular Exam: regular rate/rhythm, normal heart sounds, No murmur, No friction rub, No gallop Gastrointestinal/Abdomen Exam: soft, normal bowel sounds, No tenderness, No distention, No mass Extremity Exam: other (no c/c/e of legs) OBJECTIVE DATA Vital Signs: Vital Signs - 24 hr Temp Pulse Resp BP Pulse Ox 10/27/17 08:19 96.9 F 72 14 126/83 96 10/27/17 08:00 14 10/27/17 06:50 79 20 92 L 10/27/17 04:56 63 15 133/84 98 10/27/17 04:00 63 18 10/27/17 03:55 67 18 99 10/27/17 01:00 67 17 98 10/27/17 00:01 65 10/27/17 00:00 15 10/26/17 23:52 65 15 98 10/26/17 21:00 97.5 F 89 25 H 120/74 94 L 10/26/17 20:00 89 25 H 10/26/17 18:55 83 24 97 10/26/17 17:00 98 F 71 24 134/86 90 L 10/26/17 15:55 81 23 10/26/17 15:19 78 24 92 L 10/26/17 13:00 97.6 F 68 17 131/82 94 L 10/26/17 11:54 69 17 10/26/17 10:22 73 22 98 10/26/17 09:00 97.6 F 62 16 131/82 Oxygen-Last 24 hours O2 Percentage 6 Liters = 44% O2 Percentage 6 Liters = 44% O2 Percentage 80% O2 Percentage 80% O2 Percentage 6 Liters = 44% Oxygen Flowrate (L/min)-RT 6 Oxygen Flowrate (L/min)-RT 8 Pain Assessment - Last Documented Pain Intensity 0 Pain Scale Used 0-10 Pain Scale Intake and Output: Intake & Output 10/25/17 10/26/17 10/27/17 10/28/17 06:59 06:59 06:59 06:59 Intake Total 2861 2358 2629 Output Total 415 600 950 Balance 2446 6908 1679 Weight 65.3 kg 65.5 kg 70.3 kg Lab Results: Lab Results-Last 24 Hours 10/26/17 10/27/17 10/27/17 Range/Units 05:35 06:07 06:07 WBC 10.6 H (4.0-10.5) K/mm3 RBC 3.75 L (4.1-5.6) M/mm3 Hgb 11.0 L (12.5-18.0) gm/dl Hct 35.9 L (42-50) % MCV 95.7 (78-100) fl MCH 29.3 (26-32) pg MCHC 30.6 L (32-36) g/dl RDW 16.0 H (11.5-14.0) % Plt Count 264 (150-450) K/mm3 MPV 10.4 H (6-9.5) fl Segmented Neutrophils 97 H 92 H (36.-66.) % Lymphocytes (Manual) 2 L 5 L (24-44) % Monocytes (Manual) 1 3 (0.0-12.0) % Differential Comment ABNORMAL ABNORMAL Platelet Estimate NORMAL NORMAL (NORMAL) Poikilocytosis 1+ 1+ Anisocytosis 1+ 1+ Sodium 141 (136-145) mEq/L Potassium 4.7 (3.5-5.1) mEq/L Chloride 112 H (98-107) mEq/L Carbon Dioxide 22.9 (21-32) mEq/L Anion Gap 10.9 (5-15) MEQ/L BUN 45 H (9-20) mg/dL Creatinine 1.30 (0.55-1.30) mg/dl Estimated GFR 56 ML/MIN Glucose 142 H (70-110) MG/DL Calcium 8.2 L (8.5-10.1) mg/dL Multi-Disciplinary Progress Notes: Multi-Disciplinary Progress Notes 10/27/17 04:06 Respiratory Note by Bertin Kramer Bibiana DECREASED PT O2 FROM 8LPM OXYMIZER TO 6LPM OXYMIZER AFTER HIS 0300 TX THIS MORNING. PT SPO2 WAS 96%, HR 62, AND RR 14. PT BS WERE CLEAR AND DIMINISHED. PT REMAINED ASLEEP THE ENTIRE TIME. Initialized on 10/27/17 04:06 - END OF NOTE Assessment/Plan (1) Pneumonia Current Visit: Yes Status: Acute Qualifiers: Pneumonia type: due to unspecified organism Laterality: bilateral Lung location: unspecified part of lung Qualified Code(s): J18.9 - Pneumonia, unspecified organism Assessment & Plan: Continue meropenem day [address] Huey Mcmahon, mesh man, following. Continue oxygen and breathing treatments. Chest pysiotherapy as ordered by Dr. Huey Mcmahon. He and his daughter do not want him transferred to another hospital. I feel that he would be risky to transfer given his high oxygen requirement and quick desaturations with any kind of exertion. Code(s): J18.9 - PNEUMONIA, UNSPECIFIED ORGANISM (2) Paroxysmal atrial fibrillation Current Visit: Yes Status: Acute Assessment & Plan: Continue anticoagulation. Currently in sinus rhythm with normal rate. Code(s): I48.0 - PAROXYSMAL ATRIAL FIBRILLATION (3) Anxiety Current Visit: Yes Status: Acute Code(s): F41.9 - ANXIETY DISORDER, UNSPECIFIED (4) Shingles Current Visit: No Status: Resolved Code(s): B02.9 - ZOSTER WITHOUT COMPLICATIONS (5) Acute hypoxemic respiratory failure Current Visit: No Status: Acute Code(s): J96.01 - ACUTE RESPIRATORY FAILURE WITH HYPOXIA (6) Renal insufficiency Current Visit: No Status: Acute Assessment & Plan: At his baseline. Will decrease IV fluids.
[2017-10-27] MEDS: THERAGRAN MULTIVITAMIN PO SCH (10:19)
[2017-10-27] MEDS: Lexapro 10 MG PO SCH (10:19)
[2017-10-27] MEDS: Colace 100 MG PO PRN (10:19)
[2017-10-27] MEDS: ZOCOR 20MG PO SCH (10:19)
[2017-10-27] MEDS: Neurontin 100 MG PO SCH ×3 (10:20→21:38)
[2017-10-27] MEDS: Lopressor 25MG Tab PO SCH ×2 (10:20→21:38)
[2017-10-27] MEDS: Pepcid 20 MG PO SCH ×2 (10:20→21:38)
--- NOTE | 2017-10-27 13:01 | ECHO ---
Transthoracic echocardiographic examination and color Doppler was done on 10/24/2017. INDICATION: Atrial fibrillation. IMPRESSION: 1) MILD LEFT VENTRICULAR HYPOKINESIA.EJECTION FRACTION AROUND 50%. 2) MODERATE MITRAL REGURGITATION. 3) MODERATE TRICUSPID REGURGITATION. RIGHT VENTRICULAR SYSTOLIC PRESSURE OF 52 MM OF MERCURY SUGGESTIVE OF MODERATE PULMONARY HYPERTENSION. 4) SCLEROTIC AORTIC VALVE. 5) LEFT ATRIAL ENLARGEMENT. 6) RIGHT SIDE CHAMBER ENLARGEMENT. 7) RIGHT ATRIAL ENLARGEMENT. 8) MILD PULMONIC INSUFFICIENCY. The left ventricle is visualized and demonstrated mild left ventricular hypokinesia. Ejection fraction around 50%. The left ventricular thickness is normal. The mitral valve is seen and this opens adequately. It is calcified at posterior leaflet. There is moderate mitral regurgitation. Left atrium is enlarged. The aortic valve is sclerotic. There is no significant gradient across the left ventricular outflow tract. The right side chambers are moderately dilated. The right atrium is mildly dilated. There is moderate tricuspid regurgitation. The right ventricular systolic pressure of about 52 mm of Mercury suggestive of moderate pulmonary hypertension. There is also mild pulmonic insufficiency.
[2017-10-27] MEDS: Dextrose 5% -0.45 NaCl 1000 ML 1,000 ML IV SCH (13:14)
[2017-10-27] MEDS: Flomax 0.4 MG PO SCH (14:46)
--- NOTE | 2017-10-27 15:21 | PROG NOTE ---
CONSULT DATE: 10/27/2017 The patient is awake, remains on Oxymizer and maintains saturation in mid 90's. However, he desaturates easy with any activity. The patient does report improvement in cough and shortness of breath with a flutter valve. PHYSICAL EXAMINATION: Vital signs noted. Heart rate 103, blood pressure 122/70. Saturating 94%. HEENT: Normocephalic. Oral exam is limited. Partially edentulous. NECK: Supple. CVS: First and second heart sounds are normal, regular, rhythmic. Mild tachycardia. RESPIRATORY: Diminished breath sounds. Rhonchi improved. ABDOMEN: Soft. EXTREMITIES: No edema is noted. LABORATORY DATA AND TESTS: Labs reviewed. ASSESSMENT: This is an 82 year old male admitted with: 1) Acute on chronic respiratory failure. 2) Chronic obstructive pulmonary disease with exacerbation. 3) Acute bronchitis. 4) Hypoxia. 5) Anxiety. RECOMMENDATIONS: Continue present treatment. The patient is not well motivated for rehab including refuses to get out of bed to chair due to shortness of breath. Apparently he was not participating much in rehab at [facility] as well. Discussed with case management. The patient has limited days left for rehab. Will need to decide regarding applying for Medicare versus palliative care options upon discharge. He seems to have maxed out on his clinical improvement at this point so recommendation of reduction of steroids and PT may be deemed appropriate for patient.
[2017-10-27] MEDS: XARELTO 10 MG TABLET PO SCH (17:12)
[2017-10-27] MEDS: LEVOFLOXACIN 750MG/150ML D5W 750 MG/150 ML BAG IV SCH (17:55)
[2017-10-27] MEDS: BENADRYL 25 MG CAPSULE PO PRN (21:38)
[2017-10-28] MEDS: DUONEB 0.5-3 MG/3 ml Neb IH SCH ×6 (03:32→23:21)
[2017-10-28] MEDS: solu-MEDROL 125 MG IV SCH (05:20)
[2017-10-28] MEDS: MERREM 500MG 500 MG in Sodium Chloride 100ML MINI-BAG PLUS 100 ML IV SCH ×3 (05:20→21:25)
[2017-10-28] MEDS: Mucomyst 200 MG/ML IH SCH ×2 (07:03→20:13)
[2017-10-28] MEDS: ADVAIR 500-50 DISKUS IH SCH ×2 (07:03→20:13)
--- NOTE | 2017-10-28 08:30 | PCM.NOTE ---
Date and Time: 10/28/17821 Subjective Assessment: He reports he had a rough night. He continues to be on 6L with the oximizer. His nurse notes his sats are usually 92-95% but he gets short of breath with any exertion including eating. He denies pain. His hands continue to be swollen but they are not painful. - Review of Systems Constitutional: Weakness Eyes: No Symptoms Ears, Nose, & Throat: No Symptoms Respiratory: Cough, Short Of Breath Cardiac: No Symptoms Abdominal/Gastrointestinal: No Symptoms Genitourinary Symptoms: No Symptoms Musculoskeletal: No Symptoms Skin: Other (swelling of his hands ) Objective Exam General Appearance: no apparent distress, alert Neurologic Exam: alert, cooperative, normal mood/affect Skin Exam: normal color, warm, dry, No rash Respiratory Exam: other (distant breath sounds, no wheezing, + cough with deep breaths, no rhonchi or crackles) Cardiovascular Exam: regular rate/rhythm, normal heart sounds, No murmur, No friction rub, No gallop Gastrointestinal/Abdomen Exam: soft, normal bowel sounds, No tenderness, No distention, No mass Extremity Exam: other (no c/c/e of lower extremities but marked swelling of his hands and arms bilat) OBJECTIVE DATA Vital Signs: Vital Signs - 24 hr Temp Pulse Resp BP Pulse Ox 10/28/17 07:43 97.5 F 75 20 134/94 92 L 10/28/17 07:00 71 20 95 10/28/17 04:00 97.3 F 78 25 H 129/80 92 L 10/28/17 00:01 70 10/28/17 00:00 97.8 F 70 18 125/79 96 10/27/17 20:00 97.6 F 107 H 30 H 114/74 10/27/17 19:00 91 H 28 H 92 L 10/27/17 16:00 97.8 F 78 24 125/73 92 L 10/27/17 14:15 95 H 24 96 10/27/17 12:50 97.8 F 91 H 18 112/76 95 10/27/17 12:00 85 17 10/27/17 10:48 94 H 24 90 L Oxygen-Last 24 hours O2 Percentage 6 Liters = 44% O2 Percentage 6 Liters = 44% O2 Percentage 6 Liters = 44% O2 Percentage 6 Liters = 44% O2 Percentage 6 Liters = 44% O2 Percentage 6 Liters = 44% Oxygen Flowrate (L/min)-RT 6 Oxygen Flowrate (L/min)-RT 6 Pain Assessment - Last Documented Pain Intensity 0 Pain Scale Used 0-10 Pain Scale Intake and Output: Intake & Output 10/26/17 10/27/17 10/28/17 10/29/17 06:59 06:59 06:59 06:59 Intake Total 2358 2629 1781 Output Total 600 950 575 Balance 1758 1679 1206 Weight 65.5 kg 70.3 kg 70.4 kg Lab Results: Lab Results-Last 24 Hours 10/27/17 Range/Units 06:07 Segmented Neutrophils 92 H (36.-66.) % Lymphocytes (Manual) 5 L (24-44) % Monocytes (Manual) 3 (0.0-12.0) % Differential Comment ABNORMAL Platelet Estimate NORMAL (NORMAL) Poikilocytosis 1+ Anisocytosis 1+ Assessment/Plan (1) Pneumonia Current Visit: Yes Status: Acute Qualifiers: Pneumonia type: due to unspecified organism Laterality: bilateral Lung location: unspecified part of lung Qualified Code(s): J18.9 - Pneumonia, unspecified organism Assessment & Plan: Continue meropenem and levofloxacin. Dr. Huey Mcmahon has been following. Continue with oxygen and breathing treatments. Code(s): J18.9 - PNEUMONIA, UNSPECIFIED ORGANISM (2) Paroxysmal atrial fibrillation Current Visit: Yes Status: Acute Assessment & Plan: Continue anticoagulation. He is currently in sinus rhythm. Code(s): I48.0 - PAROXYSMAL ATRIAL FIBRILLATION (3) Anxiety Current Visit: Yes Status: Acute Assessment & Plan: Seems better controlled on lexapro. Code(s): F41.9 - ANXIETY DISORDER, UNSPECIFIED (4) Acute hypoxemic respiratory failure Current Visit: No Status: Acute Assessment & Plan: He was noted to have a desaturation to 70's when he stood for 3 minutes with physical therapy. Code(s): J96.01 - ACUTE RESPIRATORY FAILURE WITH HYPOXIA (5) Renal insufficiency Current Visit: No Status: Acute Assessment & Plan: Stable.
[2017-10-28] MEDS: DELTASONE 20 MG PO SCH (09:04)
[2017-10-28] MEDS: Neurontin 100 MG PO SCH ×3 (09:04→21:26)
[2017-10-28] MEDS: THERAGRAN MULTIVITAMIN PO SCH (09:05)
[2017-10-28] MEDS: Lopressor 25MG Tab PO SCH ×2 (09:05→21:26)
[2017-10-28] MEDS: ZOCOR 20MG PO SCH (09:05)
[2017-10-28] MEDS: Colace 100 MG PO PRN (09:06)
[2017-10-28] MEDS: Pepcid 20 MG PO SCH ×2 (09:06→21:26)
[2017-10-28] MEDS: Lexapro 10 MG PO SCH (09:11)
[2017-10-28] MEDS ORDERED: Mucomyst 200 MG/ML IH ONE (13:34)
[2017-10-28] MEDS: Flomax 0.4 MG PO SCH (15:22)
[2017-10-28] MEDS: XARELTO 10 MG TABLET PO SCH (18:11)
[2017-10-29] MEDS: DUONEB 0.5-3 MG/3 ml Neb IH SCH ×6 (03:15→23:35)
[2017-10-29] MEDS: MERREM 500MG 500 MG in Sodium Chloride 100ML MINI-BAG PLUS 100 ML IV SCH ×3 (06:05→21:18)
--- NOTE | 2017-10-29 08:44 | PCM.NOTE ---
Date and Time: 10/29/17 0839 Subjective Assessment: he did use bipap last night and was able to sleep better and keep sats up on the bipap did not tolerate any activity or out of bed yesterday without desats Objective Exam General Appearance: mild distress, thin, other (on bipap) Neurologic Exam: alert, cooperative Skin Exam: warm, dry Eye Exam: No scleral icterus, No pale conjunctivae Ears, Nose, Throat Exam: dry mucous membranes Neck Exam: supple Respiratory Exam: other (on bipap), No crackles/rales, No wheezing Cardiovascular Exam: regular rate/rhythm Gastrointestinal/Abdomen Exam: soft, normal bowel sounds, tenderness Extremity Exam: other (right arm edema) Male Genitalia Exam: other (Goldman with clear yellow urine) OBJECTIVE DATA Vital Signs: Vital Signs - 24 hr Temp Pulse Resp BP Pulse Ox 10/29/17 04:00 96.3 F 74 15 124/90 96 10/29/17 03:00 65 14 94 L 10/28/17 23:58 67 10/28/17 23:55 96.2 F 69 18 142/97 99 10/28/17 23:23 69 14 98 10/28/17 20:20 86 26 H 90 L 10/28/17 20:00 96.2 F 95 H 26 H 142/97 90 L 10/28/17 15:53 96.2 F 84 20 134/86 90 L 10/28/17 12:00 97.4 F 88 24 126/72 88 L 10/28/17 10:42 77 20 95 Oxygen-Last 24 hours O2 Percentage 6 Liters = 44% O2 Percentage 6 Liters = 44% Oxygen Flowrate (L/min)-RT 10 Oxygen Flowrate (L/min)-RT 10 Oxygen Flowrate (L/min)-RT 10 Pain Assessment - Last Documented Pain Intensity 0 Pain Scale Used 0-10 Pain Scale Intake and Output: Intake & Output 10/26/17 10/27/17 10/28/17 10/29/17 11:59 11:59 11:59 11:59 Intake Total 6519 2629 1881 Output Total 600 566 640 5465 Balance 1758 1679 1306 -1075 Weight 65.5 kg 70.3 kg 70.4 kg Radiology Exams: Radiology Procedures Category Date Time Status CHEST 1 VIEW (PORTABLE) Routine Exams 10/29/17 08:38 Ordered Multi-Disciplinary Progress Notes: Multi-Disciplinary Progress Notes 10/28/17 14:33 Physical Therapy Note by Cesilia Brady PATIENT ABLE TO TOLERATE UP IN CHAIR X 30 MINUTES TODAY WITH CONSTANT MONITOR AND CUES FOR BREATHING. WORKED WITH NURSING TO ACCOMPLISH ROUTINE CARE TASKS IN PROCESS OF PATIENT BEING OUT OF BED. TRANSFERS SUPINE TO SIT; SIT TO STAND; PIVOT TRANSFERS MOD ASSIST + 2. O2 DEPLETION TO 73% LOW - DID INCREASE O2 NC TO 8L DURING ACTIVITY; HAD BEEN 6L AT REST. RECOVERY TAKES 5 MINUTES TO 85%. WITH DEEP BREATHING CUES CAN REACH 87-88%. Initialized on 10/28/17 14:33 - END OF NOTE 10/28/17 14:11 Case Management Note by Claudia Braga TO PT'S ROOM. CESILIA BRADY P.T. AND CARA KAN AT BEDSIDE TO TRANSFER PT TO CHAIR. PT PENNY ACTIVITY FAIR, C/O SOB, SPO2 85-88% ON 8L OXYMIZER. DID HAVE DISCUSSION WITH PT IN REGARDS TO HIS EXPECTATIONS AT DISCHARGE. PT REPORTS THAT HE IS PLANNING TO RETURN TO [facility]. DOES HESITATE, AND VERBALIZE THAT HE IS UNSURE THAT THEIR STAFF WILL BE ABLE TO HANDLE HIS CARE. ASKED PT TO EXAND AND EXPLAIN WHY HE FEELS THAT WAY, PT REPORTS THAT HE DOESN'T FEEL THAT HIS CALL LIGHTS ARE ANSWERED VERY QUICKLY. DID DISCUSS DIFFERENCE IN ACUTE CARE(HOSPITAL) VS CORRECTION. PT DID VERBALIZE UNDERSTANDING TO THIS. REPORTS THAT HE WANTS TO STAY CLOSE TO FAMILY, SO HE WILL PLAN TO RETURN TO [facility]. ALSO, DISCUSSED HOSPICE SERVICES WITH PT, IF HE DECIDED THAT HE WAS NOT ABLE TO PARTICIPATE IN REHAB SERVICES. DECLINED ADD NEEDS AT PRESENT. WILL CONTINUE TO FOLLOW AND ASSESS FOR ALL DC NEEDS. Initialized on 10/28/17 14:11 - END OF NOTE 10/28/17 13:42 Nutrition Note by Ness Sosa F/u Note: Pt receiving a soft diet with 0-50% po intake. SOB when eating. weight 70.4 kg ; 60.5 on adm. +fluid balance 652 mls. Labs; BUN 45, Cr wnl, glu 142, hgb 11.0 , hct 35.9. Sending ensure 1 can tid with meals. goal #1) increase po intake > =50% #2) no weight loss. Will monitor and f/u prn. MS AmandaRDCD Initialized on 10/28/17 13:42 - END OF NOTE 10/28/17 12:30 (created 10/28/17 14:05) Case Management Note by Claudia Braga LONG DISCUSSION WITH PT'S DAUGHTER, JASSI DIEZ, IN REGARDS TO DISCHARGE PLANNING. DISCUSSED THAT SHE WANTS PT TO RETURN TO [facility] ON DISCHARGE. DISCUSSED SKILLED REHAB AND CRITERIA FOR REHAB. ALSO, DISCUSSED SKILLED DAYS. DAUGHTER VERBALIZED UNDERSTANDING. DID DISCUSS SEVERITY OF PT'S CHRONIC LUNG ISSUES AND THAT LIKELY PT WOULD REQUIRE A LONGER REHAB STAY. ALSO, DISCUSSED HOSPICE SERVICES FOR COMFORT CARE. DAUGHTER ABLE TO REPEAT INFORMATION BACK AND VERBALIZED UNDERSTANDING. REPORTS THAT SHE WILL THINK ABOUT ALL OF ABOVE. REPORTS THAT HER [id number] LAST NIGHT, AND SHE HAS NOT BEEN ABLE TO VISIT HOSPITAL TODAY. WILL CONTINUE TO FOLLOW AND ASSESS FOR ALL DC NEEDS. Initialized on 10/28/17 14:05 - END OF NOTE Assessment/Plan (1) Acute hypoxemic respiratory failure Current Visit: Yes Status: Acute Assessment & Plan: with lack of significant improvement on empiric abx for the pneumonia on the left likely lingular area only 1 portable available compared to previous there is some concern possible worsening obstruction from underlying mass? right basilar infiltrate vs scarring on the right as well will repeat portable xray if able to tolerate today pending the xray findings may consider chest ct to further charecterize the lack of clinical improvement with his current treatment. Code(s): J96.01 - ACUTE RESPIRATORY FAILURE WITH HYPOXIA (2) Healthcare-associated pneumonia Current Visit: Yes Status: Acute Code(s): J18.9 - PNEUMONIA, UNSPECIFIED ORGANISM (3) COPD exacerbation Current Visit: Yes Status: Acute Code(s): J44.1 - CHRONIC OBSTRUCTIVE PULMONARY DISEASE W (ACUTE) EXACERBATION (4) Paroxysmal atrial fibrillation Current Visit: Yes Status: Acute Code(s): I48.0 - PAROXYSMAL ATRIAL FIBRILLATION (5) Hypertension Current Visit: No Status: Chronic Code(s): I10 - ESSENTIAL (PRIMARY) HYPERTENSION (6) Renal insufficiency Current Visit: No Status: Acute
[2017-10-29] MEDS: Lexapro 10 MG PO SCH (10:20)
[2017-10-29] MEDS: Pepcid 20 MG PO SCH ×3 (10:20→21:12)
[2017-10-29] MEDS: ZOCOR 20MG PO SCH ×2 (10:20→11:38)
[2017-10-29] MEDS: Lopressor 25MG Tab PO SCH ×3 (10:20→21:19)
[2017-10-29] MEDS: DELTASONE 20 MG PO SCH ×2 (10:20→11:38)
[2017-10-29] MEDS: THERAGRAN MULTIVITAMIN PO SCH ×2 (10:20→11:38)
[2017-10-29] MEDS: Neurontin 100 MG PO SCH ×4 (10:20→21:12)
[2017-10-29] MEDS: ADVAIR 500-50 DISKUS IH SCH ×2 (11:12→20:09)
[2017-10-29] MEDS ORDERED: Lasix 40 MG/4 ML IV ONE (11:24)
[2017-10-29] MEDS: Klor Con 10 MEQ PO SCH ×3 (11:37→21:12)
[2017-10-29 12:07] LABS: Hematocrit 39.3 % (42-50); Hemoglobin 12.3 gm/dl (12.5-18.0); Mean Cell Volume 93.6 fl (78-100); Mean Corpuscular Hgb Concent. 31.3 g/dl (32-36); Mean Platelet Volume 10.8 fl (6-9.5); Platelet Count 253 K/mm3 (150-450); Red Cell Distribution Width 16.2 % (11.5-14.0); White Blood Count 16.7 K/mm3 (4.0-10.5)
[2017-10-29 12:09] LABS: Mean Corpuscular Hemoglobin 29.2 pg (26-32)
[2017-10-29 12:37] LABS: ANION GAP 12.1 MEQ/L (5-15); Calcium 8.5 mg/dL (8.5-10.1); Carbon Dioxide 23.1 mEq/L (21-32); Creatinine 1 1.27 mg/dl (0.55-1.30); Potassium 4.9 mEq/L (3.5-5.1)
[2017-10-29] MEDS: Flomax 0.4 MG PO SCH (15:57)
[2017-10-29] MEDS: XARELTO 10 MG TABLET PO SCH (17:00)
[2017-10-29] MEDS: Lasix 20 MG/2 ML IV SCH ×2 (17:01→21:12)
[2017-10-29] MEDS: LEVOFLOXACIN 750MG/150ML D5W 750 MG/150 ML BAG IV SCH (17:32)
--- NOTE | 2017-10-29 21:08 | XRAY ---
Indication: Respiratory failure. Comparison: October 22, 2017. Portable chest again demonstrates COPD with scattered bilateral fibrosis/scarring. Minimal clearing of the previous left midlung consolidation with worsening right base airspace disease and left effusion. Heart is not enlarged. Comment: Preliminary interpretation was made by [facility]. No discrepancy.
[2017-10-30 05:34] LABS: Hematocrit 38.1 % (42-50); Hemoglobin 12.2 gm/dl (12.5-18.0); Mean Platelet Volume 11.2 fl (6-9.5); Platelet Count 229 K/mm3 (150-450); Red Blood Count 4.14 M/mm3 (4.1-5.6); Red Cell Distribution Width 16.2 % (11.5-14.0)
[2017-10-30 05:40] LABS: Mean Corpuscular Hemoglobin 29.4 pg (26-32)
[2017-10-30 05:41] LABS: ANION GAP 12.3 MEQ/L (5-15); Calcium 8.5 mg/dL (8.5-10.1); Carbon Dioxide 23.9 mEq/L (21-32); Creatinine 1 1.37 mg/dl (0.55-1.30); Potassium 4.8 mEq/L (3.5-5.1)
[2017-10-30] MEDS: MERREM 500MG 500 MG in Sodium Chloride 100ML MINI-BAG PLUS 100 ML IV SCH ×3 (06:19→21:20)
[2017-10-30] MEDS: ADVAIR 500-50 DISKUS IH SCH (06:45)
[2017-10-30] MEDS: DUONEB 0.5-3 MG/3 ml Neb IH SCH ×3 (07:07→15:24)
[2017-10-30 09:54] LABS: ALBUMIN 1.6 g/dL (3.4-5.0); BILIRUBIN,TOTAL 0.6 mg/dL (0.2-1.0); Direct Bilirubin 0.19 MG/DL (0.0-0.2); Total Protein 4.4 gm/dL (6.4-8.2)
[2017-10-30] MEDS: DELTASONE 20 MG PO SCH (10:32)
[2017-10-30] MEDS: Klor Con 10 MEQ PO SCH ×4 (10:32→21:20)
[2017-10-30] MEDS: Neurontin 100 MG PO SCH ×4 (10:33→21:20)
[2017-10-30] MEDS: THERAGRAN MULTIVITAMIN PO SCH (10:33)
[2017-10-30] MEDS: Lexapro 10 MG PO SCH (10:33)
[2017-10-30] MEDS: ZOCOR 20MG PO SCH (10:33)
[2017-10-30] MEDS: Pepcid 20 MG PO SCH ×2 (10:33→21:20)
[2017-10-30] MEDS: Lasix 20 MG/2 ML IV SCH ×3 (10:33→21:20)
[2017-10-30] MEDS: Lopressor 25MG Tab PO SCH ×2 (10:33→21:20)
--- NOTE | 2017-10-30 12:09 | PCM.NOTE ---
Date and Time: 10/30/17 1202 Subjective Assessment: he did improve a little with the diuresis he was able to take the bipap off to oximzer for about 8 hours from 1 am to 9 am. he ate a small amount and drank some He then was having diffiuclty keeping O2 up with the oximizer and talking and was placed back on the bipap. His and daughter are here today and discussing with him his severe lung disease and poor prognosis Objective Exam General Appearance: moderate distress, thin Neurologic Exam: alert, cooperative Skin Exam: warm, dry Ears, Nose, Throat Exam: dry mucous membranes Neck Exam: non-tender, supple Respiratory Exam: diminished breath sounds, prolonged expirations Cardiovascular Exam: regular rate/rhythm, No murmur Gastrointestinal/Abdomen Exam: soft, normal bowel sounds, No tenderness Extremity Exam: other (pitting edema bilateral upper arms) OBJECTIVE DATA Vital Signs: Vital Signs - 24 hr Temp Pulse Resp BP Pulse Ox 10/30/17 11:59 98 F 77 21 93 L 10/30/17 11:11 78 22 95 10/30/17 07:22 98 F 74 13 92 L 10/30/17 07:07 79 22 89 L 10/30/17 03:52 97.7 F 88 25 H 144/69 90 L 10/30/17 03:29 74 10/30/17 00:01 95 H 10/30/17 00:00 98.8 F 95 H 21 92/69 93 L 10/29/17 23:35 83 30 H 93 L 10/29/17 20:00 81 28 H 96 10/29/17 19:47 27 H 10/29/17 19:32 98.8 F 79 28 H 94/62 97 10/29/17 19:26 82 10/29/17 16:00 98.8 F 74 23 94/62 96 10/29/17 15:00 69 20 97 Oxygen-Last 24 hours O2 Percentage 60% O2 Percentage 80% O2 Percentage 80% O2 Percentage 80% O2 Percentage 60% O2 Percentage 60% Pain Assessment - Last Documented Pain Intensity 0 Pain Scale Used 0-10 Pain Scale Intake and Output: Intake & Output 10/28/17 10/29/17 10/30/17 10/31/17 11:59 11:59 11:59 11:59 Intake Total 1881 919 Output Total 576 9785 3450 Balance 1117 -4430 -4940 Weight 70.4 kg 66.9 kg Lab Results: Lab Results-Last 24 Hours 10/29/17 10/29/17 10/29/17 Range/Units 11:38 11:39 11:39 WBC 16.7 H (4.0-10.5) K/mm3 RBC 4.20 (4.1-5.6) M/mm3 Hgb 12.3 L (12.5-18.0) gm/dl Hct 39.3 L (42-50) % MCV 93.6 (78-100) fl MCH 29.2 (26-32) pg MCHC 31.3 L (32-36) g/dl RDW 16.2 H (11.5-14.0) % Plt Count 253 (150-450) K/mm3 MPV 10.8 H (6-9.5) fl Sodium 140 (136-145) mEq/L Potassium 4.9 (3.5-5.1) mEq/L Chloride 110 H (98-107) mEq/L Carbon Dioxide 23.1 (21-32) mEq/L Anion Gap 12.1 (5-15) MEQ/L BUN 40 H (9-20) mg/dL Creatinine 1.27 (0.55-1.30) mg/dl Estimated GFR 58 ML/MIN Glucose 77 (70-110) MG/DL Calcium 8.5 (8.5-10.1) mg/dL Magnesium 1.9 (1.8-2.4) mg/dL Total Bilirubin (0.2-1.0) mg/dL Direct Bilirubin (0.0-0.2) MG/DL AST (15-37) U/L ALT (12-78) U/L Alkaline Phosphatase (46-116) U/L NT-Pro-B Natriuret Pep 836 H (0-450) pg/ml Serum Total Protein (6.4-8.2) gm/dL Albumin (3.4-5.0) g/dL 10/30/17 10/30/17 10/30/17 Range/Units 04:30 05:00 05:00 WBC 15.0 H (4.0-10.5) K/mm3 RBC 4.14 (4.1-5.6) M/mm3 Hgb 12.2 L (12.5-18.0) gm/dl Hct 38.1 L (42-50) % MCV 92.0 (78-100) fl MCH 29.4 (26-32) pg MCHC 32.0 (32-36) g/dl RDW 16.2 H (11.5-14.0) % Plt Count 229 (150-450) K/mm3 MPV 11.2 H (6-9.5) fl Sodium 138 (136-145) mEq/L Potassium 4.8 (3.5-5.1) mEq/L Chloride 107 (98-107) mEq/L Carbon Dioxide 23.9 (21-32) mEq/L Anion Gap 12.3 (5-15) MEQ/L BUN 49 H (9-20) mg/dL Creatinine 1.37 H (0.55-1.30) mg/dl Estimated GFR 53 ML/MIN Glucose 96 (70-110) MG/DL Calcium 8.5 (8.5-10.1) mg/dL Magnesium (1.8-2.4) mg/dL Total Bilirubin 0.60 (0.2-1.0) mg/dL Direct Bilirubin 0.19 (0.0-0.2) MG/DL AST 15 (15-37) U/L ALT 17 (12-78) U/L Alkaline Phosphatase 71 (46-116) U/L NT-Pro-B Natriuret Pep (0-450) pg/ml Serum Total Protein 4.4 L (6.4-8.2) gm/dL Albumin 1.6 L (3.4-5.0) g/dL Radiology Exams: Radiology Procedures Category Date Time Status CHEST 1 VIEW (PORTABLE) Routine Exams 10/29/17 08:38 Completed Assessment/Plan (1) Acute hypoxemic respiratory failure Current Visit: Yes Status: Acute Assessment & Plan: he is improved slightly with the diuresis with his end stage copd and lack of clinical improvement he was recommended for hospice by pulmonology will continue to work on diuresis as this allowed him to eat today some and be off the bipap. Long discussion between Jin Braga, his , his daughter and the patient about his options. He would prefer to be at home. He accepts that his lungs are doing poorly and he has a limited life span and would prefer to be at home. His is currently doing rehab in long term herself and she is doing much better and actually stayed with her daughter last night with no difficulties and is navigating stairs. She wishes to take him home with hospice but she herself is not at home yet. Will plan on improving his fluid overload with iv Lasix continued monitor I/O Then plan for back to [facility] for skilled care for possible transition to at home hospice if his is able to get herself home and provide the necessary environment to safely and adequately help care for him. Code(s): J96.01 - ACUTE RESPIRATORY FAILURE WITH HYPOXIA (2) Healthcare-associated pneumonia Current Visit: Yes Status: Acute Code(s): J18.9 - PNEUMONIA, UNSPECIFIED ORGANISM (3) COPD exacerbation Current Visit: Yes Status: Acute Code(s): J44.1 - CHRONIC OBSTRUCTIVE PULMONARY DISEASE W (ACUTE) EXACERBATION (4) Paroxysmal atrial fibrillation Current Visit: Yes Status: Acute Code(s): I48.0 - PAROXYSMAL ATRIAL FIBRILLATION (5) Hypertension Current Visit: No Status: Chronic Code(s): I10 - ESSENTIAL (PRIMARY) HYPERTENSION (6) Renal insufficiency Current Visit: No Status: Acute
[2017-10-30] MEDS ORDERED: Phenergan 25 MG INJ ONE (15:59)
[2017-10-30] MEDS ORDERED: Phenergan 25 MG INJ IV PRN (16:06)
[2017-10-30] MEDS: XARELTO 10 MG TABLET PO SCH (19:12)
[2017-10-30] MEDS: Colace 100 MG PO SCH (21:20)
[2017-10-31] MEDS: DUONEB 0.5-3 MG/3 ml Neb IH SCH ×8 (04:02→22:55)
[2017-10-31] MEDS: MERREM 500MG 500 MG in Sodium Chloride 100ML MINI-BAG PLUS 100 ML IV SCH ×3 (06:07→21:57)
[2017-10-31] MEDS: Colace 100 MG PO SCH ×2 (09:43→21:56)
[2017-10-31] MEDS: Lasix 20 MG/2 ML IV SCH (09:43)
[2017-10-31] MEDS: DELTASONE 20 MG PO SCH (09:43)
[2017-10-31] MEDS: ZOCOR 20MG PO SCH (09:43)
[2017-10-31] MEDS: Klor Con 10 MEQ PO SCH ×4 (09:43→21:57)
[2017-10-31] MEDS: Pepcid 20 MG PO SCH ×2 (09:43→21:56)
[2017-10-31] MEDS: Neurontin 100 MG PO SCH ×3 (09:44→21:57)
[2017-10-31] MEDS: THERAGRAN MULTIVITAMIN PO SCH (09:44)
[2017-10-31] MEDS: Lopressor 25MG Tab PO SCH ×2 (09:44→22:14)
[2017-10-31] MEDS: Lexapro 10 MG PO SCH (10:03)
--- NOTE | 2017-10-31 12:02 | PCM.NOTE ---
Date and Time: 10/31/17 1157 Subjective Assessment: He reports he is able to breath a little bit better today. He agrees that his plan is to go to [facility] and then go home with hospice. He denies any pain anywhere. He reports he ate some breakfast. His nurses note that he vomited after eating some supper last night. - Review of Systems Constitutional: Weakness Eyes: No Symptoms Ears, Nose, & Throat: No Symptoms Respiratory: Short Of Breath, Other (cough has improved) Cardiac: No Symptoms Abdominal/Gastrointestinal: No Symptoms Genitourinary Symptoms: No Symptoms Musculoskeletal: Other (swelling of arms) Objective Exam General Appearance: other (mild tachypnea, pursed lip breathing) Neurologic Exam: alert, cooperative, normal mood/affect Skin Exam: normal color, warm, dry Respiratory Exam: other (distant breath sounds, no crackles, no wheezes) Cardiovascular Exam: regular rate/rhythm, normal heart sounds, No murmur, No friction rub, No gallop Gastrointestinal/Abdomen Exam: soft, normal bowel sounds, No tenderness, No distention, No mass Extremity Exam: other (swelling of arms bilat, no swelling of lower extremities) OBJECTIVE DATA Vital Signs: Vital Signs - 24 hr Temp Pulse Resp BP Pulse Ox 10/31/17 08:00 72 20 85 L 10/31/17 07:48 97.4 F 66 13 124/85 93 L 10/31/17 07:39 72 24 10/31/17 04:00 63 12 96 10/31/17 03:49 97.5 F 65 14 104/69 96 10/31/17 00:01 70 10/30/17 23:58 98 F 70 24 106/59 94 L 10/30/17 20:00 98 F 71 14 100/64 96 10/30/17 15:53 98 F 94 H 21 127/85 86 L 10/30/17 15:25 87 24 87 L 10/30/17 11:59 98 F 77 21 93 L Oxygen-Last 24 hours O2 Percentage 60% Oxygen Flowrate (L/min)-RT 10 Oxygen Flowrate (L/min)-RT 10 Oxygen Flowrate (L/min)-RT 10 Oxygen Flowrate (L/min)-RT 10 Oxygen Flowrate (L/min)-RT 10 Pain Assessment - Last Documented Pain Intensity 0 Pain Scale Used 0-10 Pain Scale Intake and Output: Intake & Output 10/29/17 10/30/17 10/31/17 11/01/17 06:59 06:59 06:59 06:59 Intake Total 100 719 200 240 Output Total 1075 3450 9992 [facility] -[phone] 082 Weight 66.9 kg 60.1 kg Assessment/Plan (1) Acute hypoxemic respiratory failure Current Visit: Yes Status: Acute Assessment & Plan: He continues to require high levels of oxygen. Try to wean as tolerated. Most likely will need to have bipap available at [facility] when he is discharged there. Dr. Huey Mcmahon saw him during this hospitalization. His overall prognosis is poor and guarded given his multiple medical problems and high oxygen requirement. Code(s): J96.01 - ACUTE RESPIRATORY FAILURE WITH HYPOXIA (2) Pneumonia Current Visit: Yes Status: Acute Qualifiers: Pneumonia type: due to unspecified organism Laterality: bilateral Lung location: unspecified part of lung Qualified Code(s): J18.9 - Pneumonia, unspecified organism Assessment & Plan: Meropenem Day 9, levofloxacin day 8. Code(s): J18.9 - PNEUMONIA, UNSPECIFIED ORGANISM (3) Paroxysmal atrial fibrillation Current Visit: Yes Status: Acute Assessment & Plan: Currently in sinus rhythm with rate controlled. Code(s): I48.0 - PAROXYSMAL ATRIAL FIBRILLATION (4) Anxiety Current Visit: Yes Status: Acute Assessment & Plan: Well controlled. Code(s): F41.9 - ANXIETY DISORDER, UNSPECIFIED (5) Renal insufficiency Current Visit: No Status: Acute
[2017-10-31] MEDS: LEVOFLOXACIN 750MG/150ML D5W 750 MG/150 ML BAG IV SCH (17:33)
[2017-10-31] MEDS: XARELTO 10 MG TABLET PO SCH (17:34)
[2017-10-31] MEDS: ADVAIR 500-50 DISKUS IH SCH ×2 (19:41→21:43)
[2017-10-31] MEDS ORDERED: Lasix 20 MG/2 ML IV SCH (22:00)
[2017-10-31] MEDS: Sodium Chloride 0.9% 10 ML FLUSH Syringe IV SCH (22:20)
[2017-10-31] MEDS ORDERED: Protonix 40MG Tablet PO ONE (22:45)
[2017-11-01] MEDS: DUONEB 0.5-3 MG/3 ml Neb IH SCH ×7 (03:27→23:59)
[2017-11-01] MEDS: Sodium Chloride 0.9% 10 ML FLUSH Syringe IV SCH ×3 (05:20→23:13)
[2017-11-01] MEDS: MERREM 500MG 500 MG in Sodium Chloride 100ML MINI-BAG PLUS 100 ML IV SCH ×3 (05:20→18:07)
[2017-11-01] MEDS: ADVAIR 500-50 DISKUS IH SCH ×4 (06:49→19:54)
--- NOTE | 2017-11-01 08:32 | PCM.NOTE ---
Date and Time: 11/01/17826 Subjective Assessment: Patient states his night was ok. He states the medication (pantoprazole) given last night helped with his heart burn. Dr. Lopez was contacted yesterday due to SVT. He increased his metoprolol from 25 mg po bid to 37.5 mg po bid. Patient denies pain. He continues to have swelling in his arms. He reports that his breathing is a little better but he continues to be on an oximizer. - Review of Systems Constitutional: Weakness Eyes: No Symptoms Ears, Nose, & Throat: No Symptoms Respiratory: Short Of Breath Cardiac: No Symptoms Abdominal/Gastrointestinal: Other (heartburn) Genitourinary Symptoms: No Symptoms Musculoskeletal: No Symptoms Skin: Other (swelling in his arms) Objective Exam General Appearance: other (mild tachypnea, cooperative, will sit up so I can hear his lungs; carrillo in place) Neurologic Exam: alert, cooperative Skin Exam: normal color, warm, dry, other (marked swelling of arms bilat) Respiratory Exam: other (distant breath sounds, mild tachypnea), No crackles/ rales, No rhonchi, No wheezing Cardiovascular Exam: regular rate/rhythm, normal heart sounds, No murmur, No friction rub, No gallop Gastrointestinal/Abdomen Exam: soft, normal bowel sounds, No tenderness, No distention, No mass Extremity Exam: other (no c/c/e of lower extremities; IV in left arm) OBJECTIVE DATA Vital Signs: Vital Signs - 24 hr Temp Pulse Resp BP Pulse Ox 11/01/17 06:47 77 22 94 L 11/01/17 04:00 97.6 F 73 14 111/75 95 11/01/17 03:27 74 15 94 L 11/01/17 00:01 83 11/01/17 00:00 98.5 F 83 15 100/62 94 L 10/31/17 22:55 85 21 90 L 10/31/17 19:52 81 10/31/17 19:50 27 H 10/31/17 19:49 98.5 F 81 27 H 102/67 94 L 10/31/17 19:39 84 27 H 90 L 10/31/17 16:00 98.6 F 78 14 123/79 94 L 10/31/17 12:00 97.8 F 81 16 121/71 90 L Oxygen-Last 24 hours O2 Percentage 100% O2 Percentage 100% O2 Percentage 100% Oxygen Flowrate (L/min)-RT 10 Pain Assessment - Last Documented Pain Intensity 0 Pain Scale Used 0-10 Pain Scale Intake and Output: Intake & Output 10/30/17 10/31/17 11/01/17 11/02/17 06:59 06:59 06:59 06:59 Intake Total 771 102 1676 Output Total 3450 2900 950 Balance -2731 -2700 698 Weight 66.9 kg 62.3 kg Multi-Disciplinary Progress Notes: Multi-Disciplinary Progress Notes 10/31/17 17:06 Nutrition Note by Ness Sosa F/u Note: Diet advanced to soft with ensure. 0-25% po intake; pt with breathing problems , vomiting. Labs 10/30= BUN 49, Cr 1.37, alb 1.6, hgb 12.2, hct 38.1. Weight = 60.1 kg; 10/25 = 65.5 kg. Pt con't with poor po intake and weight loss. Recommend alt feeding method. Available for consult. Will monitor and f/u prn. TFIORDALIZA Anderson Initialized on 10/31/17 17:06 - END OF NOTE 10/31/17 15:22 Physical Therapy Note by Cesilia Brady THERAPY INTERVENTION HELD DUE TO CONDITION DECLINE OVER THE WEEKEND REQUIRING BI -PAP. HAS NOW BEEN PROGRESSED TO 10L O2 NC TO MAINTAIN 93% O2 SAT AT REST. MINIMAL EXERTION RESULTS IN SIGNIFICANT O2 DEPLETION. PATIENT POC NOW FOR COMFORT MEASURES ONLY. PLAN TO TRANSFER BACK TO [facility] TOMORROW. Initialized on 10/31/17 15:22 - END OF NOTE Assessment/Plan (1) Acute hypoxemic respiratory failure Current Visit: Yes Status: Acute Assessment & Plan: Continue with oxygen. Construction Supervisor/Carpenter Dr. Huey Mcmahon has been following. Will try to transfer to med/surg today and if this goes well, consider discharge to [facility] tomorrow. PT note states they were unable to work with him yesterday due to his condition. Code(s): J96.01 - ACUTE RESPIRATORY FAILURE WITH HYPOXIA (2) Pneumonia Current Visit: Yes Status: Acute Qualifiers: Pneumonia type: due to unspecified organism Laterality: bilateral Lung location: unspecified part of lung Qualified Code(s): J18.9 - Pneumonia, unspecified organism Assessment & Plan: Day 10 of meropenem, Day 9 of levofloxacin. Code(s): J18.9 - PNEUMONIA, UNSPECIFIED ORGANISM (3) Paroxysmal atrial fibrillation Current Visit: Yes Status: Acute Assessment & Plan: Continue anticoagulation with xarelto and metoprolol. Dr. Lopez, charter bus driver, has been following. Code(s): I48.0 - PAROXYSMAL ATRIAL FIBRILLATION (4) Anxiety Current Visit: Yes Status: Acute Assessment & Plan: Continue lexapro. Code(s): F41.9 - ANXIETY DISORDER, UNSPECIFIED (5) Renal insufficiency Current Visit: No Status: Acute (6) COPD exacerbation Current Visit: Yes Status: Acute Assessment & Plan: Will wean prednisone from 40 mg to 20 mg. Continue oxygen and breathing treatments. Code(s): J44.1 - CHRONIC OBSTRUCTIVE PULMONARY DISEASE W (ACUTE) EXACERBATION (7) SVT (supraventricular tachycardia) Current Visit: Yes Status: Acute Assessment & Plan: Dr. Lopez aware. Inreased metoprolol. Code(s): I47.1 - SUPRAVENTRICULAR TACHYCARDIA
[2017-11-01 09:03] LABS: ANION GAP 10.3 MEQ/L (5-15); Calcium 8.4 mg/dL (8.5-10.1); Carbon Dioxide 28.2 mEq/L (21-32); Creatinine 1 1.63 mg/dl (0.55-1.30); Potassium 5.1 mEq/L (3.5-5.1)
--- NOTE | 2017-11-01 09:21 | XRAY ---
Indication: Pneumonia. Comparison: October 29, 2017. Portable chest unchanged again demonstrating COPD, scattered fibrosis/scarring, and left midlung consolidation. Previous right base airspace opacity also unchanged. Heart is not enlarged. No new cardiopulmonary abnormalities.
[2017-11-01] MEDS ORDERED: Protonix 40MG Tablet PO SCH (10:00)
[2017-11-01] MEDS: ZOCOR 20MG PO SCH (10:23)
[2017-11-01] MEDS: THERAGRAN MULTIVITAMIN PO SCH (10:23)
[2017-11-01] MEDS: Neurontin 100 MG PO SCH ×3 (10:24→22:57)
[2017-11-01] MEDS: Lasix 40 MG PO SCH (10:24)
[2017-11-01] MEDS: Pepcid 20 MG PO SCH ×2 (10:24→22:57)
[2017-11-01] MEDS: DELTASONE 20 MG PO SCH (10:24)
[2017-11-01] MEDS: Lexapro 10 MG PO SCH (10:24)
[2017-11-01] MEDS: Lopressor 25MG Tab PO SCH ×2 (10:24→22:57)
[2017-11-01] MEDS: Colace 100 MG PO SCH ×2 (10:24→22:57)
[2017-11-01] MEDS: Mucomyst 200 MG/ML IH SCH ×10 (13:49→14:16)
[2017-11-01] MEDS: XARELTO 10 MG TABLET PO SCH (18:01)
[2017-11-01] MEDS ORDERED: Protonix 40MG Tablet PO ONE (22:45)
[2017-11-02] MEDS: DUONEB 0.5-3 MG/3 ml Neb IH SCH ×3 (03:35→10:35)
[2017-11-02] MEDS: MERREM 500MG 500 MG in Sodium Chloride 100ML MINI-BAG PLUS 100 ML IV SCH (06:55)
[2017-11-02] MEDS: ADVAIR 500-50 DISKUS IH SCH (06:55)
[2017-11-02] MEDS ORDERED: Dulcolax 10 MG SUPP PR PRN (07:41)
[2017-11-02] MEDS ORDERED: SENOKOT 8.6 MG PO PRN (07:42)
[2017-11-02 07:59] LABS: ANION GAP 10.7 MEQ/L (5-15); Calcium 8.8 mg/dL (8.5-10.1); Carbon Dioxide 29.6 mEq/L (21-32); Creatinine 1 1.47 mg/dl (0.55-1.30); Potassium 5.2 mEq/L (3.5-5.1)
[2017-11-02] MEDS: Lopressor 25MG Tab PO SCH (08:16)
[2017-11-02] MEDS: Pepcid 20 MG PO SCH (08:17)
[2017-11-02] MEDS: Colace 100 MG PO SCH (08:17)
[2017-11-02] MEDS: Neurontin 100 MG PO SCH (08:17)
[2017-11-02] MEDS: Lasix 40 MG PO SCH (08:17)
[2017-11-02] MEDS: Lexapro 10 MG PO SCH (08:18)
[2017-11-02] MEDS: DELTASONE 20 MG PO SCH (08:18)
[2017-11-02] MEDS: THERAGRAN MULTIVITAMIN PO SCH (08:18)
[2017-11-02] MEDS: ZOCOR 20MG PO SCH (08:20)
--- NOTE | 2017-11-02 09:06 | PCM.DCORD ---
- Discharge Discharge Date: 11/02/17 Disposition: DC TO [facility] Condition: Serious Prescriptions: New Docusate Sodium 100 mg [Colace 100 MG] 100 mg PO BID capsule Prednisone 20 mg [Deltasone 20 mg] 20 mg PO DAILY tablet Doxycycline Hyclate 100 mg PO BID #20 tablet Bisacodyl 10 mg [Dulcolax 10 MG SUPP] 10 mg NE QDP PRN supp.rect PRN Reason: Constipation Albuterol/Ipratropium 3ml Neb* [DUONEB 0.5-3 MG/3 ml Neb] 3 ml IH Q4HRT ampul.neb Furosemide 40 mg [Lasix 40 MG] 40 mg PO DAILY tablet Escitalopram Oxalate 10 mg [Lexapro 10 MG] 10 mg PO QAM tablet Metoprolol Tartrate 25 mg [Lopressor 25MG Tab] 37.5 mg PO BID tab PANTOPRAZOLE 40 mg Tablet [Protonix 40MG Tablet] 40 mg PO DAILY tab Senna 8.6 mg [Senokot 8.6 mg] 8.6 mg PO PRN PRN tablet PRN Reason: Constipation Rivaroxaban 10 mg Tablet [Xarelto 10 mg Tablet] 15 mg PO DAILY@1800 tablet Continue Atorvastatin Calcium 40 mg PO HS Clopidogrel Bisulfate 75 mg [PLAVIX 75 MG Tablet] 75 mg PO DAILY Acetaminophen 325 mg [Tylenol 325 mg] 650 mg PO Q4H PRN PRN tablet PRN Reason: Pain And/Or Fever Famotidine 20 mg [Pepcid 20 MG] 20 mg PO BID #60 tablet Tiotropium [place] Inhaler [Spiriva 18 Mcg/Cap Inhaler] 1 puff IH DAILY Multivitamin [Multivitamins] 1 each PO DAILY Tamsulosin HCl 0.4 mg [Flomax 0.4 MG] 0.4 mg PO DAILY Fluticasone/Vilanterol [Breo Ellipta 100-25 Mcg INH] 1 each IH DAILY Discontinued Metoprolol Tartrate 50 mg [Lopressor 50 MG] 12.5 mg PO BID Albuterol Sulfate [Proair Respiclick] 90 mcg IH QID PRN PRN Reason: sob Cefdinir [Omnicef] 300 mg PO BID 7 Days #14 capsule Instructions: Chronic Obstructive Pulmonary Disease Additional Instructions: BIPAP as needed, oxygen by oximizer, Ensure daily Follow up with: TEE DESAI [Primary Care Provider] - BART DOUGLAS [ACTIVE STAFF] - 1 Week
[2017-11-02] MEDS ORDERED: Protonix 40MG Tablet PO SCH (10:00)
[2017-11-02 11:55] VITALS: BP 120/70; PULSE 85; O2SAT 88
--- NOTE | 2017-11-02 13:35 | DS ---
DISCHARGE DIAGNOSES: 1) ACUTE HYPOXEMIC RESPIRATORY FAILURE. 2) PNEUMONIA, BILATERAL. 3) PAROXYSMAL ATRIAL FIBRILLATION. 4) ANXIETY. 5) RENAL INSUFFICIENCY. 6) CHRONIC OBSTRUCTIVE PULMONARY DISEASE EXACERBATION. 7) HISTORY OF SUPRAVENTRICULAR TACHYCARDIA. DISCHARGE PHYSICAL EXAMINATION: VITALS: Temperature current 98.6F, temperature max 98.6F, heart rate 84 to 99, respiratory rate 22 to 25, blood pressure 89 to 120 over 60 to 70 currently 120/70, weight 64.1 kg. Oxygen saturation 80 to 91% on Oxymizer. GENERAL: The patient was lying in bed, alert and talkative, mild tachypnea. He was able to speak in full sentences. CVS: He has a regular rate and rhythm. No murmurs, gallops or rubs are appreciated. CHEST: He has distant breath sounds throughout. No crackles. No wheezes. Equal breath sounds. ABDOMEN: Soft, nontender, nondistended with normal bowel sounds. EXTREMITIES: He has marked swelling of the upper extremities especially his left arm where his IV has been. No swelling in his lower extremities. HOSPITAL COURSE: 1) ACUTE HYPOXEMIC RESPIRATORY FAILURE: He had high oxygen requirement throughout his hospitalization. He had to be on and off BiPAP. Dr. Diaz Mcmahon saw him during his hospitalization. The patient was able to be transferred from ICU to Med/Surg yesterday and seemed to tolerate this well. He had continued oxygen and breathing treatments. He has been unable to do physical therapy due to his condition. Dr. Diaz Mcmahon said he could follow up with him after discharge. 2) PNEUMONIA: He had a repeat chest x-ray done on 11/01/2017 that revealed continued left mid-lung consolidation and right base airspace opacity. The patient completed 11 days of Meropenem and 10 days of Levaquin. I personally spoke with Dr. Diaz Mcmahon yesterday and he recommended continuing oral antibiotic. He stated we could use doxycycline so the patient has been started on doxycycline 100 mg p.o. b.i.d. to complete 10 more days. 3) PAROXYSMAL ATRIAL FIBRILLATION: He was started on Xarelto. Geothermal Operations Manager, Dr. Lopez saw him during his hospitalization. He was also started on metoprolol for rate control. 4) ANXIETY: He was started on Lexapro during his hospitalization. 5) RENAL INSUFFICIENCY: He has continued to have problems with renal insufficiency during his hospital stay. His creatinine improved with IV fluids but then his dyspnea worsened and so Lasix IV was started and this improved his breathing but his creatinine started to rise again and is currently on oral Lasix once a day. He had also been given some potassium while he was on the IV Lasix but now his potassium is at the high end of normal. I have held his potassium since then. 6) CHRONIC OBSTRUCTIVE PULMONARY DISEASE EXACERBATION: He was on IV steroids. These were weaned down to oral prednisone. I switched from 40 mg to 20 mg yesterday. I will plan to continue this at [facility], will continue breathing treatments and oxygen. 7) SUPRAVENTRICULAR TACHYCARDIA: He developed some runs of supraventricular tachycardia on 10/31/2017. Geothermal Operations Manager, Dr. Lopez, was aware and increased his dose of metoprolol. DISCHARGE MEDICATIONS: Docusate 100 mg p.o. b.i.d., prednisone 20 mg daily, doxycycline 100 mg p.o. b.i.d. for ten days, Dulcolax suppository as needed, DuoNeb every 8 hours, Furosemide 40 mg daily, Lexapro 10 mg daily, metoprolol tartrate 37.5 mg p.o. b.i.d., pantoprazole 40 mg daily, Senna 8.6 mg p.o. daily as needed, Xarelto 15 mg p.o. at 1800 hours, atorvastatin 40 mg p.o. every night, Plavix 75 mg p.o. daily, Tylenol 650 mg p.o. every four hours as needed, Famotidine 20 mg p.o. b.i.d., Spiriva 1 puff daily, multivitamin 1 tablet daily, Flomax 0.4 mg daily, Breo 100/25 mcg 1 puff inhaled daily. He will need oxygen by the Oxymizer and BiPAP as needed. I have asked for him to have an Ensure daily. He is discharged to [facility] in serious condition. DISPOSITION: The patient was discharged to [facility] in serious condition. He has been supportive care only ([facility]) here and will continue to be at [facility]. The plan is later for him to possibly go home with Hospice.
== END 2017-11-02 15:05 | DRG 189 ==
LOC: ED 16:46 → ICU 20:18 → MED SURG 11-01 09:36
PROVIDERS: ADMIT Internal Medicine; ATTEND Internal Medicine
DX: J18.9 Pneumonia, unspecified organism (principal); Y95 Nosocomial condition; J96.21 Acute and chronic respiratory failure with hypoxia; R06.03 Acute respiratory distress; I10 Essential (primary) hypertension; Z87.891 Personal history of nicotine dependence; J18.1 Lobar pneumonia, unspecified organism; J44.1 Chronic obstructive pulmonary disease with (acute) exacerbation; J44.0 Chronic obstructive pulmonary disease with (acute) lower respiratory infection; I47.1 Supraventricular tachycardia; I48.0 Paroxysmal atrial fibrillation; J20.9 Acute bronchitis, unspecified; F41.9 Anxiety disorder, unspecified; E78.5 Hyperlipidemia, unspecified; N28.9 Disorder of kidney and ureter, unspecified; Z79.01 Long term (current) use of anticoagulants; B02.9 Zoster without complications; Z79.899 Other long term (current) drug therapy; Z85.820 Personal history of malignant melanoma of skin
CPT/HCPCS: 36415; 36600; 71045; 80048; 80053; 80076; 81000; 82375; 82803; 83605; 83735; 83880; 84484; 85025; 85027; 85610; 85730; 87040; 87086; 87631; 93005; 93041; 93306; 94002; 94003; 94640; 94668; 94760; 96360; 96361; 96365; 96374; 99285; J1650; J1940; J1956; J2550; J2930; A9270-GY